=== PATIENT | male | born 1930 | race Caucasian/White ===

== ENCOUNTER 2016-07-19 17:39 | Emergency (ER) | payer MEDICARE, OTHER ==
[~2016-07-19] VITALS: Ht 172.7 cm; Wt 82.0 kg
[~2016-07-19 17:39] MED LIST: AMIO200T PO; POTA-243 PO
[2016-07-19 17:51] VITALS: BP 115/75; PULSE 124; RESP 16; TEMP 98.2; O2SAT 96
[2016-07-19] MEDS ORDERED: BUSP5TAB PO (20:34)
[2016-07-19] MEDS ORDERED: VENL75TA PO (20:34)
[2016-07-19] MEDS ORDERED: FURO1TAB60 PO (20:34)
[2016-07-19] MEDS ORDERED: DILT-64 PO (20:34)
[2016-07-19] MEDS ORDERED: BETH25TA2 PO (20:34)
[2016-07-19] MEDS ORDERED: METO50TA PO (20:34)
[2016-07-19] MEDS ORDERED: UMEC1INH INH (20:34)
[2016-07-19] MEDS ORDERED: XARE15TA PO (20:34)
[2016-07-19] MEDS ORDERED: SIMV10TA PO (20:34)
[2016-07-19] MEDS ORDERED: OMEP20TA PO (20:34)
[2016-07-19] MEDS ORDERED: TERA10CA3 PO (20:34)
--- NOTE | 2016-07-19 20:50 | PD ---
HPI Chief Complaint: Bite or Sting Time Seen by Provider: 20:21 Travel History International Travel<30 days: No Contact w/Intl Traveler<30days: No Traveled to known affect area: No History of Present Illness HPI The patient is a right-hand dominant 85-year-old male that suffered a dog bite 3 days ago to the base of the right middle finger. The patient cleaned it and soaked it and put Neosporin on it but it got infected. He states his last tetanus shot was 4 years ago. The states he cannot take sulfa, penicillin because of true allergies and he has severe side effects with tetracycline and Cleocin. He can take erythromycin. He has a history of atrial fibrillation and is on Xarelto. PFSH Past Medical History Hx Anticoagulant Therapy: Yes Arthritis: Yes Autoimmune Disease: No Anxiety: Yes Depression: Yes Heart Rhythm Problems: Yes (ABLATION) Cancer: Yes (basal cell carcinoma) Cardiovascular Problems: Yes (cad, aflutter) COPD: Yes Diabetes: No Diminished Hearing: Yes (bilat. hearing aides ) Endocrine: No GERD: Yes Genitourinary: Yes (DIFFICULTY EMPTING BLADDER) Hypertension: Yes Immune Disorder: No Implanted Vascular Access Dvce: No Musculoskeletal: Yes Neurologic: No Respiratory: Yes (copd, pneumonia) Thyroid Disease: No Tetanus Vaccination: < 5 Years Influenza Vaccination: Yes Past Surgical History Cardiac Surgery: Yes (ABLATION X2) Pacemaker: No Other Surgery: Yes (carotid artery sx ) Social History Alcohol Use: No Tobacco Use: No Substance Use: No Allergies-Medications (Allergen,Severity, Reaction): Coded Allergies: Sulfa (Unverified Allergy, Severe, UNKNOWN, 07/19/16) Penicillin (Verified Allergy, Intermediate, severe diarrhea, 07/19/16) Reported Meds & Prescriptions Reported Meds & Active Scripts Active Reported Buspirone (Buspirone HCl) 5 Mg Tab 2.5 Mg PO BID Incruse Ellipta Inh (Umeclidinium [place] Inh) 0.0625 Mg/Act Inh 62.5 Mcg INH DAILY Lasix (Furosemide) 40 Mg Tab 40 Mg PO DAILY Effexor (Venlafaxine HCl) 75 Mg Tab 150 Mg PO DAILY Omeprazole 20 Mg Tab 20 Mg PO DAILY Simvastatin 10 Mg Tab 10 Mg PO DAILY Xarelto (Rivaroxaban) 15 Mg Tab 15 Mg PO DAILY Terazosin (Terazosin HCl) 10 Mg Cap 10 Mg PO HS Bethanechol 25 Mg Tab 25 Mg PO BID Metoprolol Tartrate 50 Mg Tab 50 Mg PO BID Diltiazem CD 24 HR 240 Mg Caper 240 Mg PO DAILY Klor-Con 10 (Potassium Chloride) 10 Meq Tab 10 Meq PO DAILY Review of Systems Except as stated in HPI: all other systems reviewed are Neg Physical Exam Narrative GENERAL: Well-nourished, well-developed patient in slight apparent distress with his right finger discomfort. His vital signs are normal except for heart rate of 124. SKIN: Warm and dry. HEAD: Normocephalic. EYES: No scleral icterus. No injection or drainage. NECK: Supple, trachea midline. No JVD or lymphadenopathy. CARDIOVASCULAR: Atrial fibrillation rhythm without murmurs, gallops, or rubs. RESPIRATORY: Breath sounds equal bilaterally. No accessory muscle use. GASTROINTESTINAL: Abdomen soft, non-tender, nondistended. MUSCULOSKELETAL: No cyanosis, or edema. There is an infected dog bite at the base of the right middle finger with surrounding cellulitic area approximately 4 cm in diameter. A culture will be taken of the tissues. No obvious drainage is present. The patient can flex and extend his finger almost to full range of motion without pain. There is no evidence of tendon sheath infection. BACK: Nontender without obvious deformity. No CVA tenderness. Data Data Last Documented VS Vital Signs Date Time Temp Pulse Resp B/P Pulse Ox O2 Delivery O2 Flow Rate FiO2 07/19/16 17:51 98.2 124 16 115/75 96 Orders Wound Culture And Gram Stain (07/19/16 20:50) MDM Medical Decision Making Medical Screen Exam Complete: Yes Emergency Medical Condition: Yes Medical Record Reviewed: Yes Differential Diagnosis Cellulitis finger, infected dog bite, abscess formation, tendon sheath infection Narrative Course The patient has an infected dog bite with cellulitis. There is no evidence for abscess or tendon sheath infection. Unfortunately, the patient is allergic to the first line antibiotics for a dog bite and he will be given erythromycin and Bactroban ointment. Procedures Procedure Narrative The wound was debrided, there was skin and some subcutaneous tissues that needed debridement. Diagnosis Primary Impression: Infected dog bite of finger Additional Impression: Cellulitis of middle finger Additional Instructions: As we discussed, you will need to follow-up with a hand surgeon. Call Friday to set up an appointment. If worse, return to the emergency department for reevaluation and possible admission. Elevate your finger above your heart and soak it 3 times a day. Apply a very small amount of the antibiotic ointment on 3 times a day and take the antibiotic 3 times daily. Med/Other Pt SpecificInfo: Prescription(s) given Scripts Mupirocin Topical (Bactroban Topical)2 % Cream1 Applic TOPICAL TID #1 TUBE Ref 0 Prov:Cameron Howell MD 07/19/16 Erythromycin Ethylsuccinate (E.e.s. 400)400 Mg [id number] Mg PO Q8H 10 Days Ref 0 Prov:Cameron Howell MD 07/19/16 Disposition: 01 DISCHARGE HOME Condition: Stable Cameron Howell MD Jul 19, 2016 20:50
[2016-07-19] MEDS ORDERED: MUPI2%T TOPICAL (20:58)
[2016-07-19] MEDS ORDERED: ERYT PO (20:58)
[2016-07-19 21:00] VITALS: BP 112/69; PULSE 99; RESP 18; TEMP 97.7; O2SAT 98
[2016-07-19] MEDS ORDERED: MUPIROCIN 2% OINT 22 GM TUBE TOPICAL ONE (21:15)
[2016-07-19] MEDS ORDERED: ERYTHROMYCIN ETHYLSUCCINATE 400 MG TAB PO ONE (21:15)
== END 2016-07-19 21:40 | disposition home or self-care (01) ==
LOC: PHED 17:39
DX: S61.252A Open bite of right middle finger without damage to nail, initial encounter (principal); L03.113 Cellulitis of right upper limb; B96.89 Other specified bacterial agents as the cause of diseases classified elsewhere; W54.0XXA Bitten by dog, initial encounter
CPT/HCPCS: 86403; 87070; 87185; 87205; 99283

== ENCOUNTER 2016-08-23 13:11 | Emergency (ER) | payer MEDICARE ==
[~2016-08-23] VITALS: Ht 172.7 cm; Wt 82.3 kg
[~2016-08-23 13:11] MED LIST changes: -AMIO200T PO; +BETH25TA2 PO; +BUSP5TAB PO; +DILT-64 PO; +ERYT PO; +FURO1TAB60 PO; +METO50TA PO; +MUPI2%T TOPICAL; +OMEP20TA PO; +SIMV10TA PO; +TERA10CA3 PO; +UMEC1INH INH; +VENL75TA PO; +XARE15TA PO
[2016-08-23 13:16] VITALS: BP 110/73; PULSE 115; RESP 20; TEMP 97; O2SAT 99
--- NOTE | 2016-08-23 13:43 | PD ---
HPI Chief Complaint: Abnormal Results Time Seen by Provider: 13:26 Travel History International Travel<30 days: No Contact w/Intl Traveler<30days: No Traveled to known affect area: No History of Present Illness HPI This patient feels fine. He has no acute symptoms. He does not want to be here. He went to a routine scheduled [place] At that visit they took his vital signs and noted that his pulse was 112. They told him to go to his product sales engineer. He went to the office of Dr. Galindo and office staff told him to go to the emergency room. He didn't want to go to the emergency room so he went to the office of Dr. Merchant. Their office staff told him to go to the emergency room and he finally came here to [place] emergency room. At this time he feels fine and just wants to go home. He has no chest pain or presyncopal symptoms. Severity is negligible. PFSH Past Medical History Hx Anticoagulant Therapy: Yes Arthritis: Yes Autoimmune Disease: No Anxiety: Yes Depression: Yes Heart Rhythm Problems: Yes (ABLATION) Cancer: Yes (basal cell carcinoma) Cardiovascular Problems: Yes COPD: Yes Diabetes: No Diminished Hearing: Yes (bilat. hearing aides ) Endocrine: No GERD: Yes Genitourinary: Yes (DIFFICULTY EMPTING BLADDER) Hypertension: Yes Immune Disorder: No Implanted Vascular Access Dvce: No Musculoskeletal: Yes Neurologic: No Respiratory: Yes (copd, pneumonia) Thyroid Disease: No ?: Not Past Surgical History Cardiac Surgery: Yes (ABLATION X2) Pacemaker: No Other Surgery: Yes (carotid artery sx ) Social History Alcohol Use: No Tobacco Use: No Substance Use: No Allergies-Medications (Allergen,Severity, Reaction): Coded Allergies: Sulfa (Unverified Allergy, Severe, UNKNOWN, 08/23/16) Penicillin (Verified Allergy, Intermediate, severe diarrhea, 08/23/16) Reported Meds & Prescriptions Reported Meds & Active Scripts Active Bactroban Topical (Mupirocin) 2 % Cream 1 Applic TOPICAL TID E.e.s. 400 (Erythromycin Ethylsuccinate) 400 Mg Tab 400 Mg PO Q8H 10 Days Reported Buspirone (Buspirone HCl) 5 Mg Tab 2.5 Mg PO BID Incruse Ellipta Inh (Umeclidinium [place] Inh) 0.0625 Mg/Act Inh 62.5 Mcg INH DAILY Lasix (Furosemide) 40 Mg Tab 40 Mg PO DAILY Effexor (Venlafaxine HCl) 75 Mg Tab 150 Mg PO DAILY Omeprazole 20 Mg Tab 20 Mg PO DAILY Simvastatin 10 Mg Tab 10 Mg PO DAILY Xarelto (Rivaroxaban) 15 Mg Tab 15 Mg PO DAILY Terazosin (Terazosin HCl) 10 Mg Cap 10 Mg PO HS Bethanechol 25 Mg Tab 25 Mg PO BID Metoprolol Tartrate 50 Mg Tab 50 Mg PO BID Diltiazem CD 24 HR 240 Mg Caper 240 Mg PO DAILY Klor-Con 10 (Potassium Chloride) 10 Meq Tab 10 Meq PO DAILY Review of Systems General / Constitutional: No: Fever HENT: No: Headaches Cardiovascular: Positive: Irregular Rhythm Respiratory: No: Shortness of Breath Physical Exam Narrative CARDIOVASCULAR: Irregularly irregular rhythm without murmur. Extremities showed no edema or varicosities. RESPIRATORY: Respiratory effort unlabored, no retractions or use of accessory muscles. Breath sounds are clear and symmetric. GASTROINTESTINAL: Abdomen soft, non-tender, nondistended. Positive bowel sounds. No hepato-splenomegaly, or palpable masses. No guarding. Data Data Last Documented VS Vital Signs Date Time Temp Pulse Resp B/P Pulse Ox O2 Delivery O2 Flow Rate FiO2 08/23/16 13:16 97.0 115 20 110/73 99 MDM Medical Decision Making Medical Screen Exam Complete: Yes Emergency Medical Condition: Yes Medical Record Reviewed: Yes Differential Diagnosis A. fib with RVR, SVT, PVCs Narrative Course I have reviewed the patient's electronic medical record. Patient's A. fib is chronic. He was here last month for dog bite Patient is asymptomatic His heart rate is variable between 85 and 100 for the most part, occasionally and briefly drifts higher but then comes back to normal range I've asked him to check his heart rate and blood pressure periodically and record for his physician. Follow-up with his primary care or product sales engineer No indication for emergent studies Diagnosis Primary Impression: Atrial fibrillation with RVR Additional Instructions: The patient was advised to follow up with their physician and return if they worsen. Med/Other Pt SpecificInfo: Other Disposition: 01 DISCHARGE HOME Condition: Stable Car Frey MD Aug 23, 2016 13:43
== END 2016-08-23 14:01 | disposition home or self-care (01) ==
LOC: PHED 13:11
DX: I48.91 Unspecified atrial fibrillation (principal); F41.8 Other specified anxiety disorders; I10 Essential (primary) hypertension; Z79.01 Long term (current) use of anticoagulants; J44.9 Chronic obstructive pulmonary disease, unspecified
CPT/HCPCS: 99283

== ENCOUNTER 2016-09-10 10:54 | Observation (INO) | payer MEDICARE ==
[2016-09-10] VITALS (11 sets, daily range): BP systolic 77–151; BP diastolic 55–86; PULSE 132–148; RESP 8–23; TEMP 98–98.3; O2SAT 94–100
[~2016-09-10 10:54] MED LIST changes: -BETH25TA2 PO; -ERYT PO; -MUPI2%T TOPICAL
[2016-09-10] MEDS ORDERED: SERT-132 PO (11:12)
[2016-09-10] MEDS ORDERED: BETH25TA2 PO (11:12)
[2016-09-10] MEDS ORDERED: AMIO200T PO (11:12)
[2016-09-10] MEDS ORDERED: SODIUM CHLORID 0.9% 500 ML INJ 500 ML IV ONE (11:30)
[2016-09-10] MEDS ORDERED: OCUVTAB PO (11:30)
[2016-09-10] MEDS ORDERED: POTA-243 PO (11:30)
[2016-09-10] MEDS ORDERED: FURO40TA PO (11:30)
[2016-09-10] MEDS ORDERED: [UNRECOGNIZED DRUG - REMARK] (11:30)
[2016-09-10] MEDS ORDERED: XARE15TA PO (11:30)
[2016-09-10] MEDS ORDERED: TERA10CA3 PO (11:30)
[2016-09-10] MEDS ORDERED: DILTIAZEM HCL 25 MG/5 ML VIAL IV PUSH ONE (11:30)
[2016-09-10] MEDS ORDERED: BUSP5TAB PO (11:30)
[2016-09-10] MEDS ORDERED: SODIUM CHLORIDE 0.9% FLUSH 10 ML FLUSH IVF PRN (11:30)
[2016-09-10] MEDS ORDERED: SIMV10TA PO (11:30)
[2016-09-10 11:41] LABS: AUTOMATED NEUTROPHIL # 3.9 TH/MM3 (1.8-7.7); BASOPHIL % 0.5 % (0.0-2.0); EOSINOPHIL # 0.1 TH/MM3 (0-0.4); EOSINOPHIL % 1.6 % (0.0-4.0); HEMO FLAGS DIFF FINAL; LYMPH % 21.4 % (9.0-44.0); LYMPHOCYTE # 1.3 TH/MM3 (1.0-4.8); MEAN CELL VOLUME 97.8 FL (80.0-100.0); MEAN CORPUSCULAR HEMOGLOBIN 34.2 PG (27.0-34.0); MONO % 10.6 % (0.0-8.0); NEUT % 65.9 % (16.0-70.0); PLATELET COUNT 182 TH/MM3 (150-450); RED BLOOD COUNT 3.88 MIL/MM3 (4.50-5.90); RED CELL DISTRIBUTION WIDTH 14.5 % (11.6-17.2); WHITE BLOOD COUNT 5.9 TH/MM3 (4.0-11.0)
[2016-09-10 11:47] LABS: CHLORIDE 107 MEQ/L (98-107); POTASSIUM 4.1 MEQ/L (3.5-5.1); SODIUM (NA) 142 MEQ/L (136-145)
--- NOTE | 2016-09-10 11:47 | PD ---
HPI Chief Complaint: Cardiac Complaint Time Seen by Provider: 11:12 Travel History International Travel<30 days: No Contact w/Intl Traveler<30days: No Traveled to known affect area: No History of Present Illness HPI Patient is an 86-year-old male with history of A. fib, hypertension, diabetes, COPD, BPH, emergency room with complaints of rapid heart rate. Patient reports that he began to have a rapid heart rate starting Friday morning, reports that he was sitting down relaxing when his symptoms began. Reports that he has been having shortness of breath with symptoms, denies chest pain. Patient reports that he has had history of A. fib with ablation 2 in the past, reports that performed his last ablation 03/26/2016 - reports that both ablations were a failure. Patient reports that he is scheduled to see Dr. Galindo in the office in 2 weeks for a cardioversion for his afib. Patient is taking his diltiazem CD 240 mg daily as well as his Xarelto 15mg daily - reports that he has been compliant with his medications. PFSH Past Medical History Hx Anticoagulant Therapy: Yes Arthritis: Yes Autoimmune Disease: No Anxiety: Yes Depression: Yes Heart Rhythm Problems: Yes (AFIB) Cancer: Yes (basal cell carcinoma) Cardiovascular Problems: Yes COPD: Yes Diabetes: No Diminished Hearing: Yes (bilat. hearing aides ) Endocrine: No GERD: Yes Genitourinary: Yes (DIFFICULTY EMPTING BLADDER) Hypertension: Yes Immune Disorder: No Implanted Vascular Access Dvce: No Musculoskeletal: Yes Neurologic: No Respiratory: Yes (copd, pneumonia) Thyroid Disease: No Past Surgical History Cardiac Surgery: Yes (ABLATION X2) Pacemaker: No Other Surgery: Yes (carotid artery sx ) Social History Alcohol Use: No Tobacco Use: No Substance Use: No Allergies-Medications (Allergen,Severity, Reaction): Coded Allergies: Sulfa (Unverified Allergy, Severe, UNKNOWN, 08/23/16) Penicillin (Verified Allergy, Intermediate, severe diarrhea, 08/23/16) Doxycycline (Verified Allergy, Unknown, 09/10/16) Reported Meds & Prescriptions Reported Meds & Active Scripts Active Reported Ocuvite (Multiple Vitamins W/ Minerals) 1 Tab 1 Tab PO DAILY [Inhilation Powder] Klor-Con 10 (Potassium Chloride) 10 Meq Tab 10 Meq PO DAILY Buspirone (Buspirone HCl) 5 Mg Tab 2.5 Mg PO BID Furosemide 40 Mg Tab 40 Mg PO DAILY Simvastatin 10 Mg Tab 10 Mg PO HS Xarelto (Rivaroxaban) 15 Mg Tab 15 Mg PO HS Terazosin (Terazosin HCl) 10 Mg Cap 10 Mg PO HS Sertraline (Sertraline HCl) 50 Mg Tab 50 Mg PO HS Bethanechol 25 Mg Tab 25 Mg PO BID Amiodarone (Amiodarone HCl) 200 Mg Tab 200 Mg PO DAILY Effexor (Venlafaxine HCl) 75 Mg Tab 37 Mg PO DAILY Omeprazole 20 Mg Tab 20 Mg PO DAILY Diltiazem CD 24 HR 240 Mg Caper 120 Mg PO DAILY Review of Systems General / Constitutional: No: Fever Eyes: No: Visual changes HENT: No: Headaches Cardiovascular: Positive: Irregular Rhythm, Tachycardia, No: Chest Pain or Discomfort Respiratory: Positive: Shortness of Breath Gastrointestinal: No: Abdominal Pain Genitourinary: No: Dysuria Musculoskeletal: No: Pain Skin: No Rash Neurologic: No: Weakness Psychiatric: No: Depression Endocrine: No: Polydipsia Hematologic/Lymphatic: No: Easy Bruising Physical Exam Narrative GENERAL: Mild distress SKIN: Focused skin assessment warm/dry. HEAD: Atraumatic. Normocephalic. EYES: Pupils equal and round. ENT: No nasal bleeding or discharge. Mucous membranes pink and moist. NECK: Trachea midline. No JVD. CARDIOVASCULAR: Irregular rate and rhythm. No murmur appreciated. RESPIRATORY: No accessory muscle use. Clear to auscultation. Breath sounds equal bilaterally. GASTROINTESTINAL: Abdomen soft, non-tender, nondistended. Hepatic and splenic margins not palpable. MUSCULOSKELETAL: No obvious deformities. No clubbing. No cyanosis. No edema. NEUROLOGICAL: Awake and alert. Normal speech. PSYCHIATRIC: Appropriate mood and affect; insight and judgment normal. Data Data Last Documented VS Vital Signs Date Time Temp Pulse Resp B/P Pulse Ox O2 Delivery O2 Flow Rate FiO2 09/10/16 13:36 141 20 121/81 98 09/10/16 11:06 98.0 Orders Ckmb (Isoenzyme) Profile (09/10/16 11:18) Complete Blood Count With Diff (09/10/16 11:18) Comprehensive Metabolic Panel (09/10/16 11:18) Prothrombin Time / Inr (Pt) (09/10/16 11:18) Act Partial Throm Time (Ptt) (09/10/16 11:18) Troponin I (09/10/16 11:18) Chest, Single Ap (09/10/16 11:18) Ecg Monitoring (09/10/16 11:18) Iv Access Insert/Monitor (09/10/16 11:18) Oximetry (09/10/16 11:18) Sodium Chloride 0.9% Flush (Ns Flush) (09/10/16 11:30) Sodium Chlorid 0.9% 500 Ml Inj (Ns 500 M (09/10/16 11:30) Diltiazem Inj (Cardizem Inj) (09/10/16 11:30) Diltiazem Inj (Cardizem Inj) (09/10/16 12:00) Electrocardiogram (09/10/16 ) Add Patient To Providers List (09/10/16 ) ^ Other Nursing Orders (09/10/16 13:36) Thyroid Stimulating Hormone (09/10/16 13:36) Place In Observation (09/10/16 ) Vital Signs (Adult) Q4H (09/10/16 13:36) Activity Oob With Assistance (09/10/16 13:36) Food Production Manager / Telemetry .CONTINUOUS (09/10/16 13:36) Intake + Output RANDA.QSHIFT (09/10/16 13:36) Diet Npo (09/10/16 Lunch) Sodium Chlor 0.9% 1000 Ml Inj (Ns 1000 M (09/10/16 13:36) Sodium Chloride 0.9% Flush (Ns Flush) (09/10/16 13:45) Sodium Chloride 0.9% Flush (Ns Flush) (09/10/16 21:00) Acetaminophen (Tylenol) (09/10/16 13:45) Ondansetron Inj (Zofran Inj) (09/10/16 13:45) Basic Metabolic Panel (Bmp) (09/11/16 06:00) Complete Blood Count With Diff (09/11/16 06:00) Acetaminophen (Tylenol) (09/10/16 13:45) Acetamin-Hydrocod 325-5 Mg ([place] 5-325 (09/10/16 13:45) Acetamin-Hydrocod 325-7.5 Mg ([place] 7.5 (09/10/16 13:45) Morphine Inj (Morphine Inj) (09/10/16 13:45) Naloxone Inj (Narcan Inj) (09/10/16 13:45) Consult Cardiology (09/10/16 ) Admit Order (Ed Use Only) (09/10/16 13:39) Labs Laboratory Tests Test 09/10/16 11:20 White Blood Count 5.9 TH/MM3 Red Blood Count 3.88 MIL/MM3 Hemoglobin 13.3 GM/DL Hematocrit 38.0 % Mean Corpuscular Volume 97.8 FL Mean Corpuscular Hemoglobin 34.2 PG Mean Corpuscular Hemoglobin 35.0 % Concent Red Cell Distribution Width 14.5 % Platelet Count 182 TH/MM3 Mean Platelet Volume 8.5 FL Neutrophils (%) (Auto) 65.9 % Lymphocytes (%) (Auto) 21.4 % Monocytes (%) (Auto) 10.6 % Eosinophils (%) (Auto) 1.6 % Basophils (%) (Auto) 0.5 % Neutrophils # (Auto) 3.9 TH/MM3 Lymphocytes # (Auto) 1.3 TH/MM3 Monocytes # (Auto) 0.6 TH/MM3 Eosinophils # (Auto) 0.1 TH/MM3 Basophils # (Auto) 0.0 TH/MM3 CBC Comment DIFF FINAL Differential Comment Prothrombin Time 14.7 SEC Prothromb Time International 1.3 RATIO Ratio Activated Partial 35.0 SEC Thromboplast Time Sodium Level 142 MEQ/L Potassium Level 4.1 MEQ/L Chloride Level 107 MEQ/L Carbon Dioxide Level 26.0 MEQ/L Anion Gap 9 MEQ/L Blood Urea Nitrogen 22 MG/DL Creatinine 1.90 MG/DL Estimat Glomerular Filtration 34 ML/MIN Rate Random Glucose 91 MG/DL Calcium Level 9.2 MG/DL Total Bilirubin 0.6 MG/DL Aspartate Amino Transf 26 U/L (AST/SGOT) Alanine Aminotransferase 23 U/L (ALT/SGPT) Alkaline Phosphatase 136 U/L Total Creatine Kinase 65 U/L Troponin I LESS THAN 0.02 NG/ML Total Protein 7.2 GM/DL Albumin 3.7 GM/DL Thyroid Stimulating Hormone 1.090 uIU/ML 3rd Gen [facility] Medical Decision Making Medical Screen Exam Complete: Yes Emergency Medical Condition: Yes Interpretation(s) EKG at 1100: aflutter at 146bpm, qt/qtc: 304/452 Vital Signs Date Time Temp Pulse Resp B/P Pulse Ox O2 Delivery O2 Flow Rate FiO2 09/10/16 11:20 96 09/10/16 11:06 98.0 147 20 138/78 100 Differential Diagnosis A flutter, electrolyte abnormality, A. fib Narrative Course Patient is a 86-year-old male who presents to emergency room for evaluation of A. flutter. Patient is currently being treated by Dr. Galindo, he has had 2 failed A. fib ablations in the past. Reports that he has been having a rapid heart rate for the past 2 days, reports that symptoms are similar to his A. fib he has had in the past. Patient reports that he is scheduled to see his teacher of the sight impaired in 2 weeks for cardioversion. Patient currently in a flutter rhythm at 146 bpm, he does take diltiazem CD 24 hours 240mg daily and has been compliant with this medication. Patient was placed on a nuclear monitoring technician upon arrival to emergency room. Labs as well as x-ray of the chest ordered. Patient ordered 0.25 mg/kg dose of Cardizem, - patient did not respond to this dose of Cardizem. Patient ordered a 0.35 mg/kg dose of Cardizem. patient with aflutter in the 140's, reviewed case with Dr. Galindo who will see patient in hospital today for possible cardioversion Case reviewed with Dr. Bustillo who accepts pt to service Diagnosis Primary Impression: Atrial fibrillation and flutter Admitting Information Admitting Physician Requests: Observation Mayte Burr DO Sep 10, 2016 11:47
[2016-09-10 11:51] LABS: ANION GAP 9 MEQ/L (5-15); BLOOD UREA NITROGEN 22 MG/DL (7-18)
[2016-09-10 11:52] LABS: INTERNATIONAL NORMALIZED RATIO 1.3 RATIO; PROTHROMBIN TIME - PATIENT 14.7 SEC (9.8-11.6)
[2016-09-10 11:54] LABS: ALT (GPT) 23 U/L (12-78); AST (GOT) 26 U/L (15-37); GLOMERULAR FILTRATION RATE 34 ML/MIN (>89)
[2016-09-10 11:56] LABS: TOTAL BILIRUBIN ADULT 0.6 MG/DL (0.2-1.0)
[2016-09-10 11:57] LABS: ALKALINE PHOSPHATASE 136 U/L (45-117)
[2016-09-10] MEDS ORDERED: DILTIAZEM HCL 25 MG/5 ML VIAL IV PUSH PRN (12:00)
[2016-09-10] MEDS ORDERED: DILTIAZEM HCL 25 MG/5 ML VIAL IV ONE (12:00)
[2016-09-10 12:01] LABS: CREATINE KINASE 65 U/L (39-308)
--- NOTE | 2016-09-10 12:38 | RADHPO ---
EXAM DATE/TIME: 09/10/2016 11:22 [facility] COMPARISON: CHEST SINGLE AP, June 16, 2015, 4:19. INDICATIONS : Short of breath. Rapid heart rate. MEDICAL HISTORY : Hypertension. Chronic obstructive pulmonary disease. Osteoarthritis. GERD. WI. A-fib. SURGICAL HISTORY : Cardiac ablation. Carotid artery surgery. ENCOUNTER: Initial ACUITY: 2 days PAIN SCORE: 0/10 LOCATION: chest FINDINGS: A single view of the chest demonstrates the lungs to be symmetrically aerated without evidence of mas s, infiltrate or effusion. The cardiomediastinal contours are unremarkable. Osseous structures are intact. CONCLUSION: The lungs are clear. Ramon Molina MD on September 10, 2016 at 12:36 Board Certified Radiologist. This report was verified electronically.
[2016-09-10] MEDS ORDERED: ACETAMINOPHEN/HYDROcodone 325 MG/7.5 MG TAB PO PRN (13:45)
[2016-09-10] MEDS ORDERED: SODIUM CHLORIDE 0.9% FLUSH 10 ML FLUSH IV FLUSH PRN (13:45)
[2016-09-10] MEDS ORDERED: DOCUSATE SODIUM 100 MG CAP PO PRN (13:45)
[2016-09-10] MEDS ORDERED: MORPHINE SULFATE 4 MG/ML INJ IV PRN (13:45)
[2016-09-10] MEDS ORDERED: ONDANSETRON HCL 4 MG/2 ML VIAL IVP PRN (13:45)
[2016-09-10] MEDS ORDERED: NALOXONE HCL 0.4 MG/ML AMP IV PRN (13:45)
[2016-09-10] MEDS ORDERED: CALCIUM CARBONATE 500 MG CHEWABLE TAB CHEW PRN (13:45)
[2016-09-10] MEDS ORDERED: ACETAMINOPHEN 325 MG TAB PO PRN ×2 (13:45)
[2016-09-10] MEDS ORDERED: ACETAMINOPHEN/HYDROcodone 325 MG/5 MG TAB PO PRN (13:45)
--- NOTE | 2016-09-10 15:42 | HHI.HP ---
[facility] Service [facility] Primary Care Physician Carloz Hall M.D. Admission Diagnosis Aflutter Diagnoses: Chief Complaint: Palpitations Travel History International Travel<30 Days: No Contact w/Intl Traveler <30 Da: No Traveled to Known Affected Are: No History of Present Illness 86-year-old male with a past medical history of A. fib, HTN, DM, BPH, HLD, GERD , depression, COPD who presented with palpitations. The patient states that since Friday he has been having sensation of racing heart rate. He is also having associated shortness of breath, that is worse with exertion. He denies any chest pain or leg swelling. He states that he did forget to take his medications Friday morning, but otherwise is been compliant. Last he saw his cover remover, Dr. Galindo, who adjusted his medications in anticipation of doing cardioversion in 2 weeks. He was previously on metoprolol , which was stopped and he was started on diltiazem and amiodarone. The patient was found to be in atrial flutter with heart rate up to 150 today, patient's cover remover was contacted in the ED, reportedly evaluated the patient today. The patient denies any fever, chills, or dysuria. Review of Systems Except as stated in HPI: all other systems reviewed are Neg Past Family Social History Past Medical History Atrial fibrillation BPH Depression Hyperlipidemia GERD COPD Prediabetes/diabetes Past Surgical History Ablation 3 Basal cell carcinoma removal Carotid Endarterectomy Reported Medications Ocuvite (Multiple Vitamins W/ Minerals) 1 Tab 1 Tab PO DAILY [Inhilation Powder] Klor-Con 10 (Potassium Chloride) 10 Meq Tab 10 Meq PO DAILY Buspirone (Buspirone HCl) 5 Mg Tab 2.5 Mg PO BID Furosemide 40 Mg Tab 40 Mg PO DAILY Simvastatin 10 Mg Tab 10 Mg PO HS Xarelto (Rivaroxaban) 15 Mg Tab 15 Mg PO HS Terazosin (Terazosin HCl) 10 Mg Cap 10 Mg PO HS Sertraline (Sertraline HCl) 50 Mg Tab 50 Mg PO HS Bethanechol 25 Mg Tab 25 Mg PO BID Amiodarone (Amiodarone HCl) 200 Mg Tab 200 Mg PO DAILY Effexor (Venlafaxine HCl) 75 Mg Tab 37 Mg PO DAILY Omeprazole 20 Mg Tab 20 Mg PO DAILY Diltiazem CD 24 HR 240 Mg Caper 120 Mg PO DAILY Allergies: Coded Allergies: Sulfa (Unverified Allergy, Severe, UNKNOWN, 08/23/16) Penicillin (Verified Allergy, Intermediate, severe diarrhea, 08/23/16) Doxycycline (Verified Allergy, Unknown, 09/10/16) Active Ordered Medications Current Medications Medications (Trade) Dose Ordered Sig/Margaret Route Start Time Stop Time Status Last Admin (NS 1000 ml Inj) 1,000 ml @ 80 mls/hr [id number] IV 09/10/16 13:36 (NS Flush) 2 ml UNSCH PRN IV FLUSH 09/10/16 13:45 (NS Flush) 2 ml BID IV FLUSH 09/10/16 21:00 (Tylenol) 650 mg Q4H PRN PO 09/10/16 13:45 (Zofran Inj) 4 mg Q6H PRN IVP 09/10/16 13:45 (Tylenol) 650 mg Q6H PRN PO 09/10/16 13:45 ([place] 5-325 Mg) 1 tab Q4H PRN PO 09/10/16 13:45 ([place] 7.5-325 Mg) 1 tab Q4H PRN PO 09/10/16 13:45 (Morphine Inj) 1 mg Q3H PRN IV 09/10/16 13:45 (Narcan Inj) 0.4 mg UNSCH PRN IV 09/10/16 13:45 (Colace) 100 mg BID PRN PO 09/10/16 13:45 (Tums Chew) 1,000 mg TID PRN CHEW 09/10/16 13:45 (Urecholine) 25 mg BID PO 09/10/16 21:00 (Buspar) 2.5 mg BID PO 09/10/16 21:00 (Cardizem Cd) 120 mg DAILY PO 09/11/16 09:00 (Lasix) 40 mg DAILY PO 09/11/16 09:00 (Xarelto) 15 mg HS PO 09/10/16 21:00 (Zoloft) 50 mg HS PO 09/10/16 21:00 (Hytrin) 10 mg HS PO 09/10/16 21:00 (Protonix) 20 mg DAILY PO 09/11/16 09:00 (Pravachol) 20 mg HS PO 09/10/16 21:00 (Effexor Xr) 37.5 mg DAILY PO 09/11/16 09:00 (Cordarone) 200 mg DAILY PO 09/11/16 09:00 UNV (KCl) 10 meq DAILY PO 09/11/16 09:00 UNV Family History Father had heart disease Social History No alcohol or tobacco use Lives at home with his Physical Exam Vital Signs Vital Signs Date Time Temp Pulse Resp B/P Pulse Ox O2 Delivery O2 Flow Rate FiO2 09/10/16 13:36 141 20 121/81 98 09/10/16 12:47 141 20 125/81 98 09/10/16 12:01 141 20 122/71 98 09/10/16 11:20 96 09/10/16 11:06 98.0 147 20 138/78 100 Physical Exam GENERAL: Well-developed well-nourished. In no acute distress. SKIN: Warm and dry. No lesions noted. HEENT: Normocephalic. Pupils equal and round. Mucous membranes pink and moist. CARDIOVASCULAR: Tachycardic rate and rhythm. No murmur appreciated. RESPIRATORY: No accessory muscle use. Clear to auscultation. Breath sounds equal bilaterally. GASTROINTESTINAL: Abdomen soft, non-tender, nondistended. Bowel sounds x4. MUSCULOSKELETAL: No obvious deformities. No clubbing or cyanosis. Trace edema. NEUROLOGICAL: Awake and alert. No focal neurological deficits. Moves upper and lower extremities spontaneously. Normal speech. PSYCHIATRIC: Appropriate mood and affect; insight and judgment normal. Laboratory Laboratory Tests Test 09/10/16 11:20 White Blood Count 5.9 Red Blood Count 3.88 Hemoglobin 13.3 Hematocrit 38.0 Mean Corpuscular Volume 97.8 Mean Corpuscular Hemoglobin 34.2 Mean Corpuscular Hemoglobin 35.0 Concent Red Cell Distribution Width 14.5 Platelet Count 182 Mean Platelet Volume 8.5 Neutrophils (%) (Auto) 65.9 Lymphocytes (%) (Auto) 21.4 Monocytes (%) (Auto) 10.6 Eosinophils (%) (Auto) 1.6 Basophils (%) (Auto) 0.5 Neutrophils # (Auto) 3.9 Lymphocytes # (Auto) 1.3 Monocytes # (Auto) 0.6 Eosinophils # (Auto) 0.1 Basophils # (Auto) 0.0 CBC Comment DIFF FINAL Differential Comment Prothrombin Time 14.7 Prothromb Time International 1.3 Ratio Activated Partial 35.0 Thromboplast Time Sodium Level 142 Potassium Level 4.1 Chloride Level 107 Carbon Dioxide Level 26.0 Anion Gap 9 Blood Urea Nitrogen 22 Creatinine 1.90 Estimat Glomerular Filtration 34 Rate Random Glucose 91 Calcium Level 9.2 Total Bilirubin 0.6 Aspartate Amino Transf 26 (AST/SGOT) Alanine Aminotransferase 23 (ALT/SGPT) Alkaline Phosphatase 136 Total Creatine Kinase 65 Troponin I LESS THAN 0.02 Total Protein 7.2 Albumin 3.7 Thyroid Stimulating Hormone 1.090 3rd Gen Result Diagram: 09/10/16 1120 09/10/16 1120 Imaging Last Impressions Chest X-Ray 09/10/16 1118 Signed Impressions: Service Date/Time: Saturday, September 10, 2016 11:22 - CONCLUSION: The lungs are clear. Ramon Molina MD Assessment and Plan Assessment and Plan 86-year-old male with a past medical history of A. fib, HTN, DM, BPH, HLD, GERD , depression, COPD who presented with palpitations Atrial flutter with RVR: EKG personally reviewed with rapid atrial flutter, rate 140s, no definite ST changes. TSH and magnesium within normal limits. Dr. Galindo with cardiology consulted, may perform cardioversion today, keep nothing by mouth for now. IVF while nothing by mouth. S/P IV Cardizem in the ED. Continue oral diltiazem, Xarelto(renally adjusted), amiodarone, potassium. Reported history of borderline DM: Random glucose 91. Monitor. CKD stage III: Creatinine 1.9, previously 1.86 on 04/09/16. Continue home Lasix. Chronic, stable. Monitor. Other chronic medical conditions include BPH, depression, HLD, GERD: Stable at this time and will continue home medications as indicated. DVT prophylaxis: On Xarelto. Written by Asif Ortgea, acting as scribe for Dr. Bustillo on 09/10/16 at 15:36. This note was transcribed by scribe []. I, Dr. Moncho Bustillo personally performed the history, physical exam, and medical decision making; and confirmed the accuracy of the information in the transcribed note. Authenticated by Dr. Moncho Bustillo on 09/10/16 at 21:50. Discussed Condition With Patient with and RN at bedside Asif Ortega Sep 10, 2016 15:42 Moncho Bustillo MD Sep 10, 2016 21:50
[2016-09-10] MEDS: SODIUM CHLOR 0.9% 1000 ML INJ 1,000 ML IV SCH (17:09)
[2016-09-10] MEDS: BETHANECHOL CHL 25 MG TAB PO SCH (20:52)
[2016-09-10] MEDS: busPIRone HCL 5 MG TAB PO SCH (20:52)
[2016-09-10] MEDS: SODIUM CHLORIDE 0.9% FLUSH 10 ML FLUSH IV FLUSH SCH (20:52)
[2016-09-10] MEDS ORDERED: PRAVASTATIN SOD 20 MG TAB PO SCH (21:00)
[2016-09-10] MEDS ORDERED: SERTRALINE HCL 50 MG TAB PO SCH (21:00)
[2016-09-10] MEDS ORDERED: TERAZOSIN HCL 5 MG CAP PO SCH (21:00)
[2016-09-10] MEDS ORDERED: RIVAROXABAN 15 MG TAB PO SCH (21:00)
--- NOTE | 2016-09-10 23:49 | EKG ---
Date Performed: 09/10/2016 Time Performed: 12:14:50 PTAGE: 86 years EKG: Atrial flutter with rapid ventricular response with 2:1 A-V block Left axis deviation Infer ior infarct - age undetermined Possible septal infarct - age undetermined Lateral T wave changes may be due to myocardial ischemia Abnormal ECG PREVIOUS TRACING : 09/10/2016 11.00 Compared to prior tracing no significant change DOCTOR: Salomon Marshall Interpretating Date/Time 09/10/2016 23:47:53
--- NOTE | 2016-09-10 23:59 | EKG ---
Date Performed: 09/10/2016 Time Performed: 11:00:34 PTAGE: 86 years EKG: Atrial flutter with rapid ventricular response with 2:1 A-V block Leftward axis Possible se ptal infarct - age undetermined Possible inferior infarct - age undetermined Lateral T wave changes m ay be due to myocardial ischemia Low QRS voltages in limb leads Abnormal ECG PREVIOUS TRACING : 04/10/2016 04.06 Compared to the previous tracing, rate has increased DOCTOR: Salomon Marshall Interpretating Date/Time 09/10/2016 23:58:12
[2016-09-11] VITALS (9 sets, daily range): BP systolic 101–133; BP diastolic 53–97; PULSE 101–146; RESP 13–18; TEMP 98–98.4; O2SAT 92–99
[2016-09-11] MEDS: SODIUM CHLOR 0.9% 1000 ML INJ 1,000 ML IV SCH ×2 (02:06→11:07)
[2016-09-11] MEDS ORDERED: INSULIN HUMAN REGULAR 1,000 UNITS/10 ML VIAL SQ PRN (05:30)
[2016-09-11] MEDS ORDERED: METOPROLOL TARTRATE 25 MG TAB PO PRN (05:30)
[2016-09-11] MEDS ORDERED: POVIDONE IODINE 5% (ANTISEPSIS KIT) 4 APPLICATIONS EACH NARE PRN (05:30)
[2016-09-11] MEDS ORDERED: SODIUM CHLORID 0.9% 500 ML IV PRN (05:30)
[2016-09-11] MEDS ORDERED: LACTATED RINGER'S 1000 ML IV PRN (05:30)
[2016-09-11] MEDS ORDERED: CHLORHEXIDINE GLUCONATE 2 % 1 PACK (2 CLOTHS) TOPICAL PRN (05:30)
[2016-09-11 06:39] LABS: AUTOMATED NEUTROPHIL # 3.1 TH/MM3 (1.8-7.7); BASOPHIL # 0.1 TH/MM3 (0-0.2); EOSINOPHIL # 0.1 TH/MM3 (0-0.4); EOSINOPHIL % 2.2 % (0.0-4.0); HEMATOCRIT 39.3 % (39.0-51.0); HEMO FLAGS DIFF FINAL; LYMPH % 23.7 % (9.0-44.0); LYMPHOCYTE # 1.2 TH/MM3 (1.0-4.8); MEAN CELL VOLUME 97.2 FL (80.0-100.0); MEAN CORPUSCULAR HEMOGLOBIN 32.9 PG (27.0-34.0); MEAN CORPUSCULAR HGB CONC 33.9 % (32.0-36.0); MONO % 13.3 % (0.0-8.0); NEUT % 59.8 % (16.0-70.0); PLATELET COUNT 158 TH/MM3 (150-450); RED BLOOD COUNT 4.04 MIL/MM3 (4.50-5.90); RED CELL DISTRIBUTION WIDTH 14.5 % (11.6-17.2); WHITE BLOOD COUNT 5.1 TH/MM3 (4.0-11.0)
[2016-09-11] MEDS ORDERED: PANTOPRAZOLE SOD 20 MG DELAYED RELEASE TAB PO SCH (09:00)
[2016-09-11] MEDS ORDERED: FUROSEMIDE 40 MG TAB PO SCH (09:00)
[2016-09-11] MEDS ORDERED: AMIODARONE 200 MG TAB PO SCH (09:00)
[2016-09-11] MEDS ORDERED: POTASSIUM CHLORIDE 10 MEQ CONTROLLED RELEASE TAB PO SCH (09:00)
[2016-09-11] MEDS ORDERED: DILTIAZEM-CD 120 MG CAP ER PO SCH (09:00)
[2016-09-11] MEDS ORDERED: VENLAFAXINE HCL XR 37.5 MG CAP PO SCH (09:00)
[2016-09-11] MEDS: BETHANECHOL CHL 25 MG TAB PO SCH (09:01)
[2016-09-11] MEDS: busPIRone HCL 5 MG TAB PO SCH (09:01)
[2016-09-11] MEDS: SODIUM CHLORIDE 0.9% FLUSH 10 ML FLUSH IV FLUSH SCH (09:02)
--- NOTE | 2016-09-11 09:21 | MB ---
cc: JUSTO GONZALEZ M.D., HANSCY M.D. DATE OF CONSULTATION 09/11/2016 REASON FOR CONSULTATION Tachyarrhythmia. HISTORY OF PRESENT ILLNESS Mr. Torres is an 86-year-old gentleman with atrial fibrillation, previous ablation, was seen in the office with atrial fibrillation. Amiodarone was reinitiated. The patient is on anticoagulation. He was admitted at the ER yesterday due to atrial fibrillation with fast ventricular response, possible left atrial tachycardia. The chart was reviewed. The patient was evaluated. I discussed the case with the ER doctor, Dr. Chauhan. ALLERGIES SULFA. PENICILLIN. DOXYCYCLINE. SOCIAL HISTORY Negative for smoking and drinking. FAMILY HISTORY Noncontributory to his current medical condition. MEDICATIONS 1. He is on potassium. 2. Lasix. 3. Zocor. 4. Xarelto. 5. Terazosin. 6. Sertraline. 7. Amiodarone. 8. Effexor. 9. Omeprazole. 10. Cardizem. REVIEW OF SYSTEMS Currently the patient refers some palpitation but no chest pain or chest discomfort. No fever. PHYSICAL EXAMINATION GENERAL: Alert, fully oriented. VITAL SIGNS: Blood pressure 119/97, pulse around 144, respiratory rate 18. LUNGS: Ventilated. CARDIOVASCULAR: S1, S2. Regular, tachycardia. ABDOMEN: Soft. No mass. EXTREMITIES: No edema. ELECTROCARDIOGRAM Possible left atrial tachycardia. Residual atrial fibrillation. LABORATORY DATA Hemoglobin 13, white blood cell 5.1. Potassium is 4.1, creatinine 1.90. Troponin 0.02. INR 1.3. ASSESSMENT AND RECOMMENDATIONS Mr. Torres has atrial tachycardia, heart rate very difficult to control with medication. He had ablation around 4 months ago. At that point my recommendation is cardioversion and amiodarone. If heart rate cannot be controlled, then ablation will be considered, possible pacing support also. Case discussed with him and his . Cardioversion will be performed today. Ganesh Galindo MD HS/SSB /8:46 AM /9:05 AM
[2016-09-11] MEDS ORDERED: PROPOFOL 200 MG/20 ML AMP IV ONE (09:43)
--- NOTE | 2016-09-11 10:23 | MA ---
cc: DREW BOSWELL M.D. DATE: 09/11/2016 TYPE OF PROCEDURE: Cardioversion. HISTORY: Mr. Metz is an 86-year-old gentleman atrial tachycardia, atrial fibrillation, heart rate unable to control with medication. Patient will undergo cardioversion. The risks, the nature and the benefit of the procedure are clearly stated to him. The risks include cardiac arrest need for the cath intubation, need for pacing support and even . The patient understood and agreed to proceed. PROCEDURE After written informed consent was obtained, the patient was evaluated by anesthesiologist. Anterolateral pads were placed. Subsequently a 200 Sync biphasic joule was delivered, that converted the patient into sinus rhythm. No incident report. The patient tolerated procedure. CONCLUSION Successful cardioversion COMMENT/RECOMMENDATIONS The patient going to be transferred to telemetry unit. Will be observed when stable can be discharged home. MD NERY Carrero/tenisha /8:49 AM /9:22 AM
[2016-09-11 11:12] LABS: MAGNESIUM 2.3 MG/DL (1.5-2.5); POTASSIUM 3.8 MEQ/L (3.5-5.1)
[2016-09-11 11:13] LABS: BICARBONATE 22.7 MEQ/L (21.0-32.0)
--- NOTE | 2016-09-11 12:31 | HHI.DS ---
Discharge Summary Admission Date Sep 10, 2016 at 13:40 Discharge Date: Sep 11, 2016 Admitting Diagnosis Aflutter (1) Atrial fibrillation and flutter ICD Code: I48.91 (2) Atrial fibrillation with RVR ICD Code: I48.91 (3) CKD (chronic kidney disease) stage 3, GFR 30-59 ml/min ICD Code: N18.3 Procedures Cardioversion Brief History - From Admission HPI from the admitting physician: 86-year-old male with a past medical history of A. fib, HTN, DM, BPH, HLD, GERD , depression, COPD who presented with palpitations. The patient states that since Friday he has been having sensation of racing heart rate. He is also having associated shortness of breath, that is worse with exertion. He denies any chest pain or leg swelling. He states that he did forget to take his medications Friday, but otherwise is been compliant. Last he saw his blocker and polisher gold wheel, Dr. Galindo, who adjusted his medications in anticipation of doing cardioversion in 2 weeks. He was previously on metoprolol , which was stopped and he was started on diltiazem and amiodarone. The patient was found to be in atrial flutter with heart rate up to 150 today, patient's blocker and polisher gold wheel was contacted in the ED, reportedly evaluated the patient today. The patient denies any fever, chills, or dysuria. CBC/BMP: 09/11/16 0550 09/11/16 0550 Significant Findings Laboratory Tests Test 09/10/16 09/11/16 11:20 05:50 Red Blood Count 3.88 MIL/MM3 4.04 MIL/MM3 (4.50-5.90) (4.50-5.90) Hematocrit 38.0 % (39.0-51.0) Mean Corpuscular Hemoglobin 34.2 PG (27.0-34.0) Monocytes (%) (Auto) 10.6 % 13.3 % (0.0-8.0) (0.0-8.0) Prothrombin Time 14.7 SEC (9.8-11.6) Activated Partial 35.0 SEC Thromboplast Time (24.3-30.1) Blood Urea Nitrogen 22 MG/DL (7-18) Creatinine 1.90 MG/DL 1.65 MG/DL (0.60-1.30) (0.60-1.30) Estimat Glomerular Filtration 34 ML/MIN (>89) 40 ML/MIN (>89) Rate Alkaline Phosphatase 136 U/L (45-117) Troponin I LESS THAN 0.02 NG/ML (0.02-0.05) Chloride Level 108 MEQ/L (98-107) Imaging Last Impressions Chest X-Ray 09/10/16 1118 Signed Impressions: Service Date/Time: Saturday, September 10, 2016 11:22 - CONCLUSION: The lungs are clear. Ramon Molina MD PE at Discharge GENERAL: This is a well-nourished, well-developed patient, in no apparent distress. CARDIOVASCULAR: Regular rate and rhythm without murmurs, gallops, or rubs. RESPIRATORY: Clear to auscultation. Breath sounds equal bilaterally. No wheezes , rales, or rhonchi. GASTROINTESTINAL: Abdomen soft, non-tender, nondistended. Normal active bowel sounds MUSCULOSKELETAL: Extremities without clubbing, cyanosis, or edema. NEURO: Alert & Oriented x4 to person, place, time, situation. Moves all ext x4 Pt update on day of discharge DW RN. Patient cleared for DC by Cardiology. Patient reports he is feeling well. Wants to go home. No chest pain, shortness of breath or heart palpitations. Hospital Course 86-year-old male with a past medical history of A. fib, HTN, DM, BPH, HLD, GERD , depression, COPD who presented with palpitations. Evaluation and treatment course as followed: Atrial flutter with RVR: EKG personally reviewed with rapid atrial flutter, rate 140s, no definite ST changes. TSH and magnesium within normal limits. Dr. Galindo, EP consulted, patient failed conservative measures. He underwent Cardioversion. He was cleared for discharge to follow up outpatient. Continue oral diltiazem, Xarelto(renally adjusted), amiodarone, potassium. Reported history of borderline DM: Random glucose 91. CKD stage III: Creatinine 1.9, previously 1.86 on 04/09/16. Continue home Lasix. Chronic, stable. Other chronic medical conditions include BPH, depression, HLD, GERD: Stable at this time and will resume home medications on discharge. Pt Condition on Discharge: Good Discharge Disposition: Discharge Home Discharge Time: <= 30 minutes Discharge Instructions DIET: Follow Instructions for: Heart Healthy Diet Activities you can perform: Regular-No Restrictions Follow up Referrals: Cardiology with Ganesh Galindo MD Continued Medications: Amiodarone (Amiodarone) 200 Mg Tab 200 MG PO DAILY Regulate Heart Beat #30 Ref 0 TAB Bethanechol (Bethanechol) 25 Mg Tab 25 MG PO BID Urinary Symptom Managemen Ref 0 TAB Buspirone (Buspirone) 5 Mg Tab 2.5 MG PO BID Anxiety Ref 0 TAB Diltiazem CD 24 HR (Diltiazem CD 24 HR) 240 Mg Caper 120 MG PO DAILY #30 Ref 0 CAP Furosemide (Furosemide) 40 Mg Tab 40 MG PO DAILY #30 Ref 0 TAB Multiple Vitamins W/ Minerals (Ocuvite) 1 Tab 1 TAB PO DAILY Nutritional Supplement Ref 0 TAB Omeprazole (Omeprazole) 20 Mg Tab 20 MG PO DAILY #30 Ref 0 TAB Potassium Chloride ER (Klor-Con 10) 10 Meq Tab 10 MEQ PO DAILY Electrolyte Replacement #30 Ref 0 TAB Rivaroxaban (Xarelto) 15 Mg Tab 15 MG PO HS Blood Clot Prevention Ref 0 TAB Sertraline (Sertraline) 50 Mg Tab 50 MG PO HS #30 Ref 0 TAB Simvastatin (Simvastatin) 10 Mg Tab 10 MG PO HS Cholesterol Management #30 Ref 0 TAB Terazosin (Terazosin) 10 Mg Cap 10 MG PO HS #30 Ref 0 CAP Venlafaxine (Effexor) 75 Mg Tab 37 MG PO DAILY #120 Ref 0 TAB ([Inhilation Powder]) Jo-Ann Maldonado MD Sep 11, 2016 12:31
== END 2016-09-11 12:50 | disposition home or self-care (01) ==
LOC: PHED 10:54 → PHEDA 13:40 → PHICU 15:10 → HCIS 09-11 05:09
PROVIDERS: ADMIT Family Medicine; ATTEND Family Medicine
DX: I48.92 Unspecified atrial flutter (principal); I48.91 Unspecified atrial fibrillation; E11.22 Type 2 diabetes mellitus with diabetic chronic kidney disease; I12.9 Hypertensive chronic kidney disease with stage 1 through stage 4 chronic kidney disease, or unspecified chronic kidney disease; N18.3 Chronic kidney disease, stage 3 (moderate); E78.5 Hyperlipidemia, unspecified; N40.0 Benign prostatic hyperplasia without lower urinary tract symptoms; K21.9 Gastro-esophageal reflux disease without esophagitis; F32.9 Major depressive disorder, single episode, unspecified; J44.9 Chronic obstructive pulmonary disease, unspecified; M19.90 Unspecified osteoarthritis, unspecified site; I25.2 Old myocardial infarction; F41.9 Anxiety disorder, unspecified; Z85.828 Personal history of other malignant neoplasm of skin; Z79.01 Long term (current) use of anticoagulants; Z88.1 Allergy status to other antibiotic agents; Z88.0 Allergy status to penicillin; Z88.2 Allergy status to sulfonamides
CPT/HCPCS: 71010; 80048; 80053; 82550; 83735; 84443; 84484; 85025; 85610; 85730; 92960; 93005; 96361; 96374; 96376; 99285; G0378; J7030; J7040

== ENCOUNTER 2016-09-19 10:56 | Inpatient (IN) | payer MEDICARE ==
[2016-09-19] VITALS (13 sets, daily range): BP systolic 100–147; BP diastolic 55–96; PULSE 90–150; RESP 18–24; TEMP 97.7–98.1; O2SAT 92–98
[~2016-09-19] VITALS: Ht 177.8 cm; Wt 81.6 kg
[~2016-09-19 10:56] MED LIST changes: +AMIO200T PO; +BETH25TA2 PO; -FURO1TAB60 PO; +FURO40TA PO; -METO50TA PO; +OCUVTAB PO; +SERT-132 PO; -UMEC1INH INH; +[UNRECOGNIZED DRUG - REMARK]
--- NOTE | 2016-09-19 11:36 | PD ---
HPI Chief Complaint: Cardiac Complaint Time Seen by Provider: 11:28 Travel History International Travel<30 days: No Contact w/Intl Traveler<30days: No Traveled to known affect area: No History of Present Illness HPI 86 year old male with PMH of COPD, stage III CKD, GERD, BPH, A. fib on Xarelto presents the ED for evaluation of rapid heart rate. Patient underwent cardioversion by Dr. Galindo 09/11/16 and ablation 02/2016. He was seen in Dr. Galindo's office this morning. The nurse practitioner took an EKG and sent him to the emergency room. On presentation the patient endorses weakness and ROWLAND over the last few days. He denies headache, dizziness, vision changes, chest pain, palpitations, cough, abdominal pain, changes in bowel habits, dysuria or swelling of the lower extremities. He endorses compliance with his daily medications. Followed by Dr. Ansari. [facility] Past Medical History Hx Anticoagulant Therapy: Yes Arthritis: Yes Asthma: No Autoimmune Disease: No Anxiety: Yes Depression: Yes Heart Rhythm Problems: Yes (AFIB/flutter) Cancer: Yes (basal cell carcinoma) Cardiovascular Problems: Yes High Cholesterol: Yes Chemotherapy: No Chest Pain: Yes Congestive Heart Failure: No COPD: Yes Diabetes: No Diminished Hearing: Yes (bilat. hearing aides ) Endocrine: No GERD: Yes Genitourinary: Yes (DIFFICULTY EMPTING BLADDER) Hiatal Hernia: No Hypertension: Yes Immune Disorder: No Implanted Vascular Access Dvce: No Kidney Stones: No Musculoskeletal: Yes Neurologic: No Psychiatric: No Reproductive: No Respiratory: Yes (copd, pneumonia) Migraines: No Renal Failure: Yes (chronic kidney failure) Seizures: No Sleep Apnea: No Thyroid Disease: No Ulcer: Yes Past Surgical History Abdominal Surgery: No Cardiac Surgery: Yes (ABLATION X3) Ear Surgery: No Endocrine Surgery: No Eye Surgery: No Insulin Pump: No Joint Replacement: No Pacemaker: No Thoracic Surgery: No Other Surgery: Yes (carotid artery sx ) Social History Alcohol Use: No Tobacco Use: No Substance Use: No Allergies-Medications (Allergen,Severity, Reaction): Coded Allergies: Sulfa (Unverified Allergy, Severe, UNKNOWN, 09/19/16) Penicillin (Verified Allergy, Intermediate, severe diarrhea, 09/19/16) Doxycycline (Verified Allergy, Unknown, 09/19/16) Reported Meds & Prescriptions Reported Meds & Active Scripts Active Reported Ocuvite (Multiple Vitamins W/ Minerals) 1 Tab 1 Tab PO DAILY [Inhilation Powder] Klor-Con 10 (Potassium Chloride) 10 Meq Tab 10 Meq PO DAILY Buspirone (Buspirone HCl) 5 Mg Tab 2.5 Mg PO BID Furosemide 40 Mg Tab 40 Mg PO DAILY Simvastatin 10 Mg Tab 10 Mg PO HS Xarelto (Rivaroxaban) 15 Mg Tab 15 Mg PO HS Terazosin (Terazosin HCl) 10 Mg Cap 10 Mg PO HS Sertraline (Sertraline HCl) 50 Mg Tab 50 Mg PO HS Bethanechol 25 Mg Tab 25 Mg PO BID Amiodarone (Amiodarone HCl) 200 Mg Tab 200 Mg PO DAILY Effexor (Venlafaxine HCl) 75 Mg Tab 37 Mg PO DAILY Omeprazole 20 Mg Tab 20 Mg PO DAILY Diltiazem CD 24 HR 240 Mg Caper 120 Mg PO DAILY Review of Systems Except as stated in HPI: all other systems reviewed are Neg Physical Exam Narrative GENERAL: Well-nourished, well-developed pleasant white male in no acute distress. SKIN: Focused skin assessment warm/dry. HEAD: Normocephalic. EYES: No scleral icterus. No injection or drainage. NECK: Supple, trachea midline. No JVD or lymphadenopathy. CARDIOVASCULAR: Irregular rate and rhythm without additional murmurs, gallops, or rubs. RESPIRATORY: Breath sounds clear and equal bilaterally. No accessory muscle use. GASTROINTESTINAL: Abdomen soft, non-tender, nondistended. Active bowel sounds. MUSCULOSKELETAL: No cyanosis, or edema. Patient is ambulatory with a cane. Homans sign negative bilaterally. BACK: Nontender without obvious deformity. No CVA tenderness. Data Data Last Documented VS Vital Signs Date Time Temp Pulse Resp B/P Pulse Ox O2 Delivery O2 Flow Rate FiO2 09/19/16 12:42 141 18 125/94 97 Room Air 09/19/16 11:00 97.7 Orders Electrocardiogram (09/19/16 ) Ckmb (Isoenzyme) Profile (09/19/16 11:36) Complete Blood Count With Diff (09/19/16 11:36) Comprehensive Metabolic Panel (09/19/16 11:36) Magnesium (Mg) (09/19/16 11:36) Prothrombin Time / Inr (Pt) (09/19/16 11:36) Act Partial Throm Time (Ptt) (09/19/16 11:36) Troponin I (09/19/16 11:36) Chest, Single Ap (09/19/16 11:36) Ecg Monitoring (09/19/16 11:36) Bilateral Bp Monitoring (09/19/16 11:36) Iv Access Insert/Monitor (09/19/16 11:36) Oximetry (09/19/16 11:36) Sodium Chloride 0.9% Flush (Ns Flush) (09/19/16 11:45) Vascular Access Team Consult/P PRN (09/19/16 12:19) Vascular Poc Ultrasound (09/19/16 ) Admit Order (Ed Use Only) (09/19/16 13:01) Labs Laboratory Tests Test 09/19/16 11:44 White Blood Count 5.8 TH/MM3 Red Blood Count 4.01 MIL/MM3 Hemoglobin 13.0 GM/DL Hematocrit 38.4 % Mean Corpuscular Volume 95.8 FL Mean Corpuscular Hemoglobin 32.5 PG Mean Corpuscular Hemoglobin 34.0 % Concent Red Cell Distribution Width 15.2 % Platelet Count 206 TH/MM3 Mean Platelet Volume 9.8 FL Neutrophils (%) (Auto) 64.7 % Lymphocytes (%) (Auto) 21.4 % Monocytes (%) (Auto) 11.0 % Eosinophils (%) (Auto) 1.6 % Basophils (%) (Auto) 1.3 % Neutrophils # (Auto) 3.7 TH/MM3 Lymphocytes # (Auto) 1.2 TH/MM3 Monocytes # (Auto) 0.6 TH/MM3 Eosinophils # (Auto) 0.1 TH/MM3 Basophils # (Auto) 0.1 TH/MM3 CBC Comment DIFF FINAL Differential Comment Prothrombin Time 14.7 SEC Prothromb Time International 1.3 RATIO Ratio Activated Partial 33.3 SEC Thromboplast Time Sodium Level 142 MEQ/L Potassium Level 4.0 MEQ/L Chloride Level 107 MEQ/L Carbon Dioxide Level 25.0 MEQ/L Anion Gap 10 MEQ/L Blood Urea Nitrogen 23 MG/DL Creatinine 1.79 MG/DL Estimat Glomerular Filtration 36 ML/MIN Rate Random Glucose 84 MG/DL Calcium Level 9.2 MG/DL Magnesium Level 2.5 MG/DL Total Bilirubin 0.4 MG/DL Aspartate Amino Transf 25 U/L (AST/SGOT) Alanine Aminotransferase 21 U/L (ALT/SGPT) Alkaline Phosphatase 122 U/L Total Creatine Kinase 60 U/L Troponin I LESS THAN 0.02 NG/ML Total Protein 7.2 GM/DL Albumin 3.8 GM/DL MDM Medical Decision Making Medical Screen Exam Complete: Yes Emergency Medical Condition: Yes Differential Diagnosis dysrhythmia versus ACS versus PNA versus other Narrative Course 86 year old male with PMH of COPD, stage III CKD, GERD, BPH, A. fib on Xarelto presents the ED for evaluation of rapid heart rate. Patient underwent cardioversion by Dr. Galindo 09/11/16 and ablation 02/2016. He was seen in Dr. Galindo's office this morning. The nurse practitioner took an EKG and sent him to the emergency room. On presentation the patient endorses weakness and ROWLAND over the last few days. He denies headache, dizziness, vision changes, chest pain, palpitations, cough, abdominal pain, changes in bowel habits, dysuria or swelling of the lower extremities. He endorses compliance with his daily medications. Vitals reviewed. Pulse 150 in triage. Physical exam reveals a pleasant white male in no acute distress. Heart rate irregularly irregular. Equal pulses in the bilateral extremities. Chest clear to auscultation bilaterally. Abdomen soft, nontender. No swelling of the lower extremities. IV was established. Patient was placed on continuous monitoring. Call placed to Dr. Galindo. EKG: Rate 126, A. fib with RVR. Reviewed by Dr. Gurrola. CBC: WBC 5.8, hemoglobin 13. CMP: BUN 23, creatinine 1.79 Magnesium: 2.5 Cardiac Enzymes: Negative 1 CXR: No cardiopulmonary disease. Stable scarring in the left lung base per radiology read. Spoke with Dr. Galindo who would like the patient admitted to the CICU. He plans AV david ablation. Call placed to [facility]. I spoke with Dr. Alberto who agrees to accept the patient to the medicine service. Please see medicine and cardiology notes for disposition. Lizet Dumont Sep 19, 2016 11:36
[2016-09-19] MEDS ORDERED: SODIUM CHLORIDE 0.9% FLUSH 10 ML FLUSH IVF PRN (11:45)
[2016-09-19 12:09] LABS: AUTOMATED NEUTROPHIL # 3.7 TH/MM3 (1.8-7.7); BASOPHIL # 0.1 TH/MM3 (0-0.2); BASOPHIL % 1.3 % (0.0-2.0); EOSINOPHIL # 0.1 TH/MM3 (0-0.4); EOSINOPHIL % 1.6 % (0.0-4.0); HEMATOCRIT 38.4 % (39.0-51.0); HEMO FLAGS DIFF FINAL; LYMPH % 21.4 % (9.0-44.0); LYMPHOCYTE # 1.2 TH/MM3 (1.0-4.8); MEAN CELL VOLUME 95.8 FL (80.0-100.0); MEAN CORPUSCULAR HEMOGLOBIN 32.5 PG (27.0-34.0); NEUT % 64.7 % (16.0-70.0); PLATELET COUNT 206 TH/MM3 (150-450); RED BLOOD COUNT 4.01 MIL/MM3 (4.50-5.90); RED CELL DISTRIBUTION WIDTH 15.2 % (11.6-17.2); WHITE BLOOD COUNT 5.8 TH/MM3 (4.0-11.0)
--- NOTE | 2016-09-19 13:17 | RADRPT ---
EXAM DATE/TIME: 09/19/2016 12:06 [facility] COMPARISON: CHEST SINGLE AP, June 13, 2015, 13:47. CHEST SINGLE AP, June 16, 2015, 4:19. CHEST SINGLE AP, September 10, 2016, 11:22. INDICATIONS : Shortness of breath. MEDICAL HISTORY : Hypertension. Chronic obstructive pulmonary disease. Osteoarthritis. SURGICAL HISTORY : Cardiac ablation. Carotid artery surgery. ENCOUNTER: Initial ACUITY: 2 days PAIN SCORE: 0/10 LOCATION: Bilateral chest FINDINGS: A single AP erect portable view of the chest was obtained and demonstrates stable scarring at the lef t lung base. There are no new confluent infiltrates or effusions. The heart size remains within flo l limits. Atherosclerotic calcifications are present in the aorta. CONCLUSION: 1. No acute cardiopulmonary disease. 2. Stable scarring in the left lung base. Casimiro Woodward MD on September 19, 2016 at 13:14 Board Certified Radiologist. This report was verified electronically.
[2016-09-19 13:27] LABS: APTT (PATIENT) 33.3 SEC (24.3-30.1); INTERNATIONAL NORMALIZED RATIO 1.3 RATIO; PROTHROMBIN TIME - PATIENT 14.7 SEC (9.8-11.6)
[2016-09-19 13:33] LABS: ANION GAP 10 MEQ/L (5-15); BLOOD UREA NITROGEN 23 MG/DL (7-18); CHLORIDE 107 MEQ/L (98-107); MAGNESIUM 2.5 MG/DL (1.5-2.5); SODIUM (NA) 142 MEQ/L (136-145)
[2016-09-19 13:39] LABS: ALKALINE PHOSPHATASE 122 U/L (45-117); ALT (GPT) 21 U/L (12-78); AST (GOT) 25 U/L (15-37); GLOMERULAR FILTRATION RATE 36 ML/MIN (>89); TOTAL BILIRUBIN ADULT 0.4 MG/DL (0.2-1.0)
[2016-09-19 13:49] LABS: CREATINE KINASE 60 U/L (39-308)
--- NOTE | 2016-09-19 17:42 | HHI.HP ---
[facility] Service [facility] Primary Care Physician Carloz Hall M.D. Admission Diagnosis a fib with RVR Diagnoses: Chief Complaint: Palpitations Travel History International Travel<30 Days: No Contact w/Intl Traveler <30 Da: No Traveled to Known Affected Are: No History of Present Illness Patient is a very pleasant 86-year-old male with history of atrial fibrillations status post ablation 4 months ago and recently on last September 11 underwent cardioversion. Patient states that the next day after the procedure he went home still has occasional elevated heart rate. Patient states that he checks his blood pressures on a regular basis and every time he does his heart rate were elevated. 3 days ago on his regular follow-up with his PCP was noted to be in atrial fibrillation again. He was set up to follow up with Dr. Jackson today and on evaluation was noted to be in rapid rhythm and was sent here for further evaluation and management. In the past patient had high heart ablation done in 1997, January 2016, February 2016. No history of coronary artery disease or cerebrovascular accidents. And as stated latest one was in 09/11/16. His Cardizem was decreased 220 mg daily. At one point in the past he was on Lopressor but this was discontinued when he was placed on calcium channel carmen and amiodarone. Patient states that he gets short of breath with mild exertion. makes sure that patient is compliant with medications. Review of Systems Constitutional: DENIES: Diaphoretic episodes, Fatigue, Fever, Weight gain, Weight loss, Chills, Dizziness, Change in appetite, Night Sweats Endocrine: DENIES: Heat/cold intolerance, Polydipsia, Polyuria, Polyphagia Eyes: DENIES: Blurred vision, Diplopia, Eye inflammation, Eye pain, Vision loss , Photosensitivity, Double Vision Ears, nose, mouth, throat: DENIES: Tinnitus, Hearing loss, Vertigo, Nasal discharge, Oral lesions, Throat pain, Hoarseness, Ear Pain, Running Nose, Epistaxis, Sinus Pain, Toothache, Odynophagia Respiratory: DENIES: Apneas, Cough, Snoring, Wheezing, Hemoptysis, Sputum production, Shortness of breath Cardiovascular: COMPLAINS OF: Dyspnea on Exertion Genitourinary: COMPLAINS OF: Urgency, DENIES: Sexual dysfunction, Urinary frequency, Urinary incontinence, Hematuria, Dysuria, Nocturia, Penile Discharge , Testicular Pain, Testicular Swelling Musculoskeletal: DENIES: Joint pain, Muscle aches, Stiffness, Joint Swelling, Back pain, Neck pain Integumentary: DENIES: Abnormal pigmentation, Nail changes, Pruritus, Rash Hematologic/lymphatic: DENIES: Bruising, Lymphadenopathy Immunologic/allergic: DENIES: Eczema, Urticaria Neurologic: DENIES: Abnormal gait, Headache, Localized weakness, Paresthesias, Seizures, Speech Problems, Tremor, Poor Balance Psychiatric: COMPLAINS OF: Anxiety (positive history), Depression Past Family Social History Past Medical History Bladder dysfunction Benign prostatic hypertrophy Atrial fibrillation chronic Depression Anxiety disorder Bladder dysfunction GERD Chronic kidney insufficiency Past Surgical History Left carotid endarterectomy in 2011 Reported Medications Prazosin 10 mg at bedtime Amiodarone 200 mg daily Xarelto 50 mg at bedtime Sertraline 50 mg at bedtime Effexor 37.5 mg daily Buspirone 2.5 mg twice a Cardizem CD 120 mg daily Simvastatin 10 mg at bedtime Furosemide 40 mg daily Multivitamins by mouth daily Propranolol 25 mg twice a day Omeprazole 20 mg daily Klor-Con 10 milliequivalents daily Allergies: Coded Allergies: Sulfa (Unverified Allergy, Severe, UNKNOWN, 09/19/16) Penicillin (Verified Allergy, Intermediate, severe diarrhea, 09/19/16) Doxycycline (Verified Allergy, Unknown, 09/19/16) Family History Noncontributory Social History History of smoking quit 10 years ago alcohol use for the past 10 years Physical Exam Vital Signs Vital Signs Date Time Temp Pulse Resp B/P Pulse Ox O2 Delivery O2 Flow Rate FiO2 09/19/16 16:00 120 09/19/16 15:26 135 18 147/81 96 Room Air 09/19/16 15:00 112 09/19/16 15:00 97.8 112 18 147/96 98 09/19/16 12:42 141 18 125/94 97 Room Air 09/19/16 12:42 95 Room Air 09/19/16 11:27 146 18 98 Room Air 09/19/16 11:00 97.7 150 24 118/80 98 Physical Exam GENERAL: This is a well-nourished, well-developed patient, in no apparent distress. Appears comfortable heart rate 120 SKIN: No rashes, ecchymoses or lesions. Cool and dry. HEAD: Atraumatic. Normocephalic. No temporal or scalp tenderness. EYES: Pupils equal round and reactive. Extraocular motions intact. No scleral icterus. No injection or drainage. ENT: Nose without bleeding, purulent drainage or septal hematoma. Throat without erythema, tonsillar hypertrophy or exudate. Uvula midline. Airway patent. NECK: Trachea midline. No JVD or lymphadenopathy. Supple, nontender, no meningeal signs. CARDIOVASCULAR: Regular rhythm without murmurs, gallops, or rubs. Tachycardic RESPIRATORY: Clear to auscultation. Breath sounds equal bilaterally. No wheezes , rales, or rhonchi. GASTROINTESTINAL: Abdomen soft, non-tender, nondistended. No hepato-splenomegaly , or palpable masses. No guarding. MUSCULOSKELETAL: Extremities without clubbing, cyanosis, or edema. No joint tenderness, effusion, or edema noted. No calf tenderness. Negative Homans sign bilaterally. NEUROLOGICAL: Awake and alert. Cranial nerves II through XII intact. Motor and sensory grossly within normal limits. Five out of 5 muscle strength in all muscle groups. Normal speech. Laboratory Laboratory Tests Test 09/19/16 11:44 White Blood Count 5.8 Red Blood Count 4.01 Hemoglobin 13.0 Hematocrit 38.4 Mean Corpuscular Volume 95.8 Mean Corpuscular Hemoglobin 32.5 Mean Corpuscular Hemoglobin 34.0 Concent Red Cell Distribution Width 15.2 Platelet Count 206 Mean Platelet Volume 9.8 Neutrophils (%) (Auto) 64.7 Lymphocytes (%) (Auto) 21.4 Monocytes (%) (Auto) 11.0 Eosinophils (%) (Auto) 1.6 Basophils (%) (Auto) 1.3 Neutrophils # (Auto) 3.7 Lymphocytes # (Auto) 1.2 Monocytes # (Auto) 0.6 Eosinophils # (Auto) 0.1 Basophils # (Auto) 0.1 CBC Comment DIFF FINAL Differential Comment Prothrombin Time 14.7 Prothromb Time International 1.3 Ratio Activated Partial 33.3 Thromboplast Time Sodium Level 142 Potassium Level 4.0 Chloride Level 107 Carbon Dioxide Level 25.0 Anion Gap 10 Blood Urea Nitrogen 23 Creatinine 1.79 Estimat Glomerular Filtration 36 Rate Random Glucose 84 Calcium Level 9.2 Magnesium Level 2.5 Total Bilirubin 0.4 Aspartate Amino Transf 25 (AST/SGOT) Alanine Aminotransferase 21 (ALT/SGPT) Alkaline Phosphatase 122 Total Creatine Kinase 60 Troponin I LESS THAN 0.02 Total Protein 7.2 Albumin 3.8 Result Diagram: 09/19/16 1144 09/19/16 1144 Imaging Last Impressions Chest X-Ray 09/19/16 1136 Signed Impressions: Service Date/Time: August 12:06 - CONCLUSION: 1. No acute cardiopulmonary disease. 2. Stable scarring in the left lung base. Casimiro Woodward MD Assessment and Plan Assessment and Plan 86-year-old male presenting with depressed palpitations or dyspnea on exertion chronic Recurrent Atrial flutter/chronic A. fib invariable rate despite multiple AV david ablations in the past. Patient hemodynamically stable . Dr. Galindo was informed about this and plan is to keep patient overnight and possibly do a repeat AV david ablation in am Will continue on patient's medications are amiodarone 200 mg daily Cardizem CD 120 mg daily. Xarelto 15 mg at bedtime Chronic kidney insufficiency stage III. Renal functions are near baseline. History of hypertension. Continue on above meds. Continue on furosemide 40 mg daily. Klor-Con 10 milliequivalent daily History of hyperlipidemia continue on simvastatin 10 mg at bedtime History of depression/anxiety disorder. Continue on sertraline 50 mg at bedtime Effexor 37.5 mg daily, buspirone 2.5 mg twice a day History of BPH/bladder dysfunction. Continue finasteride 40 mg daily, bethanechol 25 mg twice a, terazosin 10 mg at bedtime History of GERD continue on omeprazole 20 mg daily Discussed with patient and at bedside Discussed Condition With Patient and Physician Certification 2 Midnight Certification Type: Admission for Inpatient Services Order for Inpatient Services The services are ordered in accordance with Medicare regulations or non- Medicare payer requirements, as applicable. In the case of services not specified as inpatient-only, they are appropriately provided as inpatient services in accordance with the 2-midnight benchmark. Estimated LOS (days): 3 days is the estimated time the patient will need to remain in the hospital, assuming treatment plan goals are met and no additional complications. Post-Hospital Plan: Not yet determined Yasmin Alberto MD Sep 19, 2016 17:42
--- NOTE | 2016-09-19 18:36 | EKG ---
Date Performed: 09/19/2016 Time Performed: 11:13:03 PTAGE: 86 years EKG: ATRIAL FIBRILLATION WITH RAPID VENTRICULAR RESPONSE SEPTAL MYOCARDIAL INFARCTION ABNORMAL E CG COMPARED TO PRIOR ELECTROCARDIOGRAM, Atrial for relation seems to have replaced atrial flutter. PREVIOUS TRACING : 09/10/2016 12.14 DOCTOR: Rayshawn Merchant Interpretating Date/Time 09/19/2016 18:34:24
[2016-09-19] MEDS ORDERED: DILTIAZEM HCL 25 MG/5 ML VIAL IV PUSH ONE (20:15)
[2016-09-19] MEDS ORDERED: DILTIAZEM 125 MG/NS 100 ML IV SCH ×2 (20:15)
[2016-09-19] MEDS: TERAZOSIN HCL 5 MG CAP PO SCH (20:39)
[2016-09-19] MEDS: busPIRone HCL 5 MG TAB PO SCH (20:40)
[2016-09-19] MEDS: PRAVASTATIN SOD 20 MG TAB PO SCH (20:40)
[2016-09-19] MEDS: SERTRALINE HCL 50 MG TAB PO SCH (20:40)
[2016-09-19] MEDS ORDERED: RIVAROXABAN 15 MG TAB PO SCH (21:00)
[2016-09-19] MEDS: BETHANECHOL CHL 25 MG TAB PO SCH (21:33)
[2016-09-20] VITALS (23 sets, daily range): BP systolic 111–130; BP diastolic 56–77; PULSE 70–128; RESP 16–20; TEMP 97.4–98.2; O2SAT 92–97
--- NOTE | 2016-09-20 08:07 | HHI.PR ---
Subjective Remarks no chest pains or shortness of breath overnight- telemetry- fib/flutter rhythm variable rate Objective Vitals Vital Signs Date Time Temp Pulse Resp B/P Pulse Ox O2 Delivery O2 Flow Rate FiO2 09/20/16 06:00 126 09/20/16 05:00 124 09/20/16 04:23 98.2 124 130/76 94 09/20/16 04:00 124 09/20/16 03:00 123 09/20/16 02:00 84 09/20/16 01:00 98 09/20/16 00:00 80 09/19/16 23:00 98.1 97 103/60 92 09/19/16 23:00 97 09/19/16 22:00 110 09/19/16 21:03 98 09/19/16 21:00 90 09/19/16 20:00 122 09/19/16 19:00 97.7 123 100/55 97 09/19/16 19:00 123 09/19/16 18:00 120 09/19/16 17:00 120 09/19/16 16:00 120 09/19/16 15:26 135 18 147/81 96 Room Air 09/19/16 15:00 112 09/19/16 15:00 97.8 112 18 147/96 98 09/19/16 12:42 141 18 125/94 97 Room Air 09/19/16 12:42 95 Room Air 09/19/16 11:27 146 18 98 Room Air 09/19/16 11:00 97.7 150 24 118/80 98 I/O 09/19/16 09/19/16 09/19/16 09/20/16 09/20/16 09/20/16 07:00 15:00 23:00 07:00 15:00 23:00 Intake Total 480 ml 240 ml Output Total 200 ml 300 ml Balance 280 ml -60 ml Intake Oral 480 ml 240 ml Output Urine Total 200 ml 300 ml Result Diagram: 09/19/16 1144 09/19/16 1144 Imaging Last Impressions Chest X-Ray 09/19/16 1136 Signed Impressions: Service Date/Time: August 12:06 - CONCLUSION: 1. No acute cardiopulmonary disease. 2. Stable scarring in the left lung base. Casimiro Woodward MD Objective Remarks GENERAL: awake and alert, NAD, oriented x 3 SKIN: Warm and dry. HEAD: Normocephalic. EYES: No scleral icterus. No injection or drainage. NECK: Supple, trachea midline. No JVD or lymphadenopathy. CARDIOVASCULAR: irregular rhythm, no murmurs RESPIRATORY: Breath sounds equal bilaterally. No accessory muscle use. GASTROINTESTINAL: Abdomen soft, non-tender, nondistended. MUSCULOSKELETAL: No cyanosis, or edema. neuro exam- unremarkable A/P Assessment and Plan 86-year-old male presenting with palpitations, dyspnea on exertion chronic Recurrent atrial fibrillation/flutter in variable rate. despite multiple AV david ablations done in the past. Patient hemodynamically stable . Comfortable Dr. Galindo was informed about this and plan is to keep patient overnight and possibly do a repeat AV david ablation. PM Will continue on patient's medications are amiodarone 200 mg daily Cardizem CD 120 mg daily. Xarelto 15 mg at bedtime Chronic kidney insufficiency stage III. Renal functions are near baseline. History of hypertension. Continue on above meds. Continue on furosemide 40 mg daily. Klor-Con 10 milliequivalent daily History of hyperlipidemia continue on simvastatin 10 mg at bedtime History of depression/anxiety disorder. Continue on sertraline 50 mg at bedtime Effexor 37.5 mg daily, buspirone 2.5 mg twice a day History of BPH/bladder dysfunction. Continue finasteride 40 mg daily, bethanechol 25 mg twice a, terazosin 10 mg at bedtime History of GERD continue on omeprazole 20 mg daily Discussed with patient and at bedside Discussed Condition With Yasmin Alberto MD Sep 20, 2016 08:07 Yasmin Alberto MD Sep 20, 2016 08:07
[2016-09-20] MEDS ORDERED: AMIODARONE 200 MG TAB PO SCH (09:00)
[2016-09-20] MEDS: PANTOPRAZOLE SOD 20 MG DELAYED RELEASE TAB PO SCH (10:26)
[2016-09-20] MEDS: busPIRone HCL 5 MG TAB PO SCH ×2 (10:26→21:02)
[2016-09-20] MEDS: POTASSIUM CHLORIDE 10 MEQ CONTROLLED RELEASE TAB PO SCH (10:26)
[2016-09-20] MEDS: VENLAFAXINE HCL XR 37.5 MG CAP PO SCH (10:26)
[2016-09-20] MEDS: FUROSEMIDE 40 MG TAB PO SCH (10:26)
[2016-09-20] MEDS: MULTIVITAMIN-OPHTHALMIC 1 TAB PO SCH (10:26)
[2016-09-20] MEDS: BETHANECHOL CHL 25 MG TAB PO SCH ×2 (10:29→21:03)
[2016-09-20] MEDS ORDERED: HEPARIN-NS/PF INJ 500 ML ONE (15:45)
[2016-09-20] MEDS ORDERED: VANCOMYCIN 500 MG VIAL ONE (15:45)
[2016-09-20] MEDS ORDERED: LIDOCAINE HCL 2% 50 ML VIAL ONE (15:46)
[2016-09-20] MEDS ORDERED: VANCOMYCIN HCL 1000 MG VIAL ONE (15:46)
[2016-09-20] MEDS ORDERED: PROPOFOL 200 MG/20 ML AMP OTHER ONE (16:30)
[2016-09-20] MEDS ORDERED: traMADol HCL 50 MG TAB PO PRN (19:00)
[2016-09-20] MEDS ORDERED: TEMAZEPAM 15 MG CAP PO PRN (19:00)
[2016-09-20] MEDS ORDERED: ATROPINE SULFATE 1 MG/ML VIAL IV PRN (19:00)
[2016-09-20] MEDS ORDERED: METOCLOPRAMIDE HCL 10 MG/2 ML VIAL IV PRN (19:00)
[2016-09-20] MEDS ORDERED: BACITRACIN OINT 0.9 GM PKT TOP ONE (19:00)
[2016-09-20] MEDS ORDERED: LORazepam 2 MG/ML VIAL IV PRN (19:00)
[2016-09-20] MEDS ORDERED: ONDANSETRON HCL 4 MG/2 ML VIAL IV PRN ×2 (19:00)
[2016-09-20] MEDS ORDERED: LIDOCAINE HCL 1% 50 ML VIAL INFIL PRN (19:00)
[2016-09-20] MEDS ORDERED: SODIUM CHLOR 0.9% 250 ML INJ 250 ML IV PRN (19:00)
[2016-09-20] MEDS ORDERED: PILL SPLITTER OTHER PRN (19:15)
[2016-09-20] MEDS ORDERED: DO NOT ADM ANY ANTICOAGULANT DRUGS PRN (20:15)
[2016-09-20] MEDS: TERAZOSIN HCL 5 MG CAP PO SCH (20:58)
[2016-09-20] MEDS ORDERED: RIVAROXABAN 15 MG TAB PO SCH (21:00)
[2016-09-20] MEDS: PRAVASTATIN SOD 20 MG TAB PO SCH (21:02)
[2016-09-20] MEDS: SERTRALINE HCL 50 MG TAB PO SCH (21:02)
[2016-09-20] MEDS: traMADol HCL 50 MG TAB PO PRN (21:07)
--- NOTE | 2016-09-20 21:21 | RADRPT ---
EXAM DATE/TIME: 09/20/2016 20:15 [facility] COMPARISON: CHEST SINGLE AP, September 19, 2016, 12:06. INDICATIONS : Rule out pneumonia. MEDICAL HISTORY : Hypertension. Chronic obstructive pulmonary disease. Osteoarthritis. SURGICAL HISTORY : Cardiac ablation. Carotid artery surgery. ENCOUNTER: Initial ACUITY: 1 day PAIN SCORE: 0/10 LOCATION: Bilateral chest FINDINGS: The heart size is enlarged. There is a multilead pacemaker in place from the left subclavian approac h. The lungs demonstrate mild prominence of the interstitial markings. A focal consolidation is not seen. No effusion is seen. CONCLUSION: 1. Cardiomegaly with diffuse increased interstitial markings likely representing mild CHF. 2. Multilead biventricular pacemaker in place without evidence of a pneumothorax. Osvaldo Duncan MD on September 20, 2016 at 21:09 Board Certified Radiologist. This report was verified electronically.
[2016-09-21] VITALS (15 sets, daily range): BP systolic 107–136; BP diastolic 58–66; PULSE 77–86; RESP 16–18; TEMP 97.6–98.3; O2SAT 92–96
--- NOTE | 2016-09-21 07:38 | PD.CARD.PN ---
Subjective Subjective Remarks no overnight events left shoulder pain Objective Medications Current Medications Medications (Trade) Dose Ordered Sig/Margaret Route Start Time Stop Time Status Last Admin (NS Flush) 2 ml UNSCH PRN IVF 09/19/16 11:45 (Urecholine) 25 mg BID PO 09/19/16 21:00 09/20/16 21:03 (Buspar) 2.5 mg BID PO 09/19/16 21:00 09/20/16 21:02 (Lasix) 40 mg DAILY PO 09/20/16 09:00 09/20/16 10:26 (Ocuvite) 1 tab DAILY PO 09/20/16 09:00 09/20/16 10:26 (KCl) 10 meq DAILY PO 09/20/16 09:00 09/20/16 10:26 (Zoloft) 50 mg HS PO 09/19/16 21:00 09/20/16 21:02 (Hytrin) 10 mg HS PO 09/19/16 21:00 09/20/16 20:58 (Protonix) 20 mg DAILY PO 09/20/16 09:00 09/20/16 10:26 (Pravachol) 20 mg HS PO 09/19/16 21:00 09/20/16 21:02 (Effexor Xr) 37.5 mg DAILY PO 09/20/16 09:00 09/20/16 10:26 (Restoril) 15 mg HS PRN PO 09/20/16 19:00 09/20/16 21:20 (Ultram) 25 mg Q4H PRN PO 09/20/16 19:00 (Ultram) 50 mg Q4H PRN PO 09/20/16 19:00 09/20/16 21:07 (Ativan Inj) 0.5 mg UNSCH PRN IV 09/20/16 19:00 09/21/16 18:59 Atropine Sulfate 0.5 mg 0.5 mg UNSCH PRN IV 09/20/16 19:00 (NS 250 ml Inj) 250 ml @ 500 mls/hr ONCE PRN IV 09/20/16 19:00 09/21/16 18:59 (Reglan Inj) 5 mg Q4H PRN IV 09/20/16 19:00 (Zofran Inj) 4 mg Q4H PRN IV 09/20/16 19:00 09/20/16 21:07 (Xylocaine 1% Inj (50 ml)) 10 ml UNSCH PRN INFIL 09/20/16 19:00 09/21/16 18:59 (Xarelto) 15 mg HS PO 09/20/16 21:00 09/20/16 21:02 (Pill Splitter) 1 ea UNSCH PRN OTHER 09/20/16 19:15 Miscellaneous Information ALL NURSING DEPARTME... UNSCH PRN .XX 09/20/16 20:15 09/21/16 20:14 Vital Signs / I&O Vital Signs Date Time Temp Pulse Resp B/P Pulse Ox O2 Delivery O2 Flow Rate FiO2 09/21/16 07:00 79 09/21/16 06:00 79 09/21/16 05:00 80 09/21/16 04:00 Nasal Cannula 3.00 09/21/16 04:00 98.3 79 18 136/66 95 09/21/16 04:00 79 09/21/16 03:00 80 09/21/16 02:00 78 09/21/16 01:00 77 09/21/16 00:00 79 09/21/16 00:00 98.2 79 18 111/60 96 09/21/16 00:00 Nasal Cannula 3.00 09/20/16 23:00 78 09/20/16 22:00 78 09/20/16 21:00 98.0 80 20 112/57 92 09/20/16 21:00 80 09/20/16 20:30 80 19 115/57 96 Nasal Cannula 3 09/20/16 20:15 96.9 80 22 118/63 95 Nasal Cannula 3 09/20/16 20:00 79 18 104/59 93 Nasal Cannula 3 09/20/16 19:45 80 19 113/61 94 Nasal Cannula 4 09/20/16 19:34 96.6 80 20 110/60 95 Nasal Cannula 4 09/20/16 16:00 09/20/16 15:00 90 09/20/16 15:00 97.4 83 16 122/77 97 09/20/16 14:21 90 09/20/16 13:05 97 09/20/16 12:09 98.2 86 16 120/56 97 09/20/16 12:08 71 09/20/16 11:00 72 09/20/16 10:00 70 09/20/16 09:30 98.0 76 16 111/73 97 09/20/16 09:00 128 09/20/16 08:00 100 I/O 09/20/16 09/20/16 09/20/16 09/21/16 09/21/16 09/21/16 07:00 15:00 23:00 07:00 15:00 23:00 Intake Total 240 ml 1545 ml 250 ml Output Total 300 ml 1350 ml 600 ml Balance -60 ml 195 ml -350 ml Intake Oral 240 ml 195 ml 240 ml IV Total 10 ml Other 1350 ml Output Urine Total 300 ml 1350 ml 600 ml Estimated Blood Loss 0 ml # Bowel Movements 1 0 Physical Exam GENERAL: Well-nourished, well-developed patient. SKIN: Warm and dry. HEAD: Normocephalic. EYES: No scleral icterus. No injection or drainage. NECK: Supple, trachea midline. No JVD or lymphadenopathy. CARDIOVASCULAR: Regular rate and rhythm without murmurs, gallops, or rubs. RESPIRATORY: Breath sounds equal bilaterally. No accessory muscle use. GASTROINTESTINAL: Abdomen soft, non-tender, nondistended. EXTREMITIES: No cyanosis, or edema. NEUROLOGICAL: Awake, alert, and oriented x 3. Non-focal. Imaging Last Impressions Chest X-Ray 09/20/16 0000 Signed Impressions: Service Date/Time: Tuesday, September 20, 2016 20:15 - CONCLUSION: 1. Cardiomegaly with diffuse increased interstitial markings likely representing mild CHF. 2. Multilead biventricular pacemaker in place without evidence of a pneumothorax. Osvaldo Duncan MD Assessment and Plan Problem List: (1) AF (atrial fibrillation) Assessment and Plan: s/p AV node ablation and BIV pacemaker yesterday No overnight events No CV complaints Device interrogation this AM within normal limits Continue medical therapy Stable from CV to be d/c home today (2) Atrial fibrillation and flutter (3) CKD (chronic kidney disease) stage 3, GFR 30-59 ml/min Josué Kenney MD Sep 21, 2016 07:38
--- NOTE | 2016-09-21 08:18 | HHI.FPPN ---
Subjective Remarks No acute events overnight. He is now POD #2 from ablation and BIV pacemaker placement. He states he has been cleared for discharge from a CV surgery standpoint. Denies fevers, chills, chest pain, shortness of breath, or heart palpitations. Currently tolerating diet. Objective Vitals Vital Signs Date Time Temp Pulse Resp B/P Pulse Ox O2 Delivery O2 Flow Rate FiO2 09/21/16 07:00 79 09/21/16 06:00 79 09/21/16 05:00 80 09/21/16 04:00 Nasal Cannula 3.00 09/21/16 04:00 98.3 79 18 136/66 95 09/21/16 04:00 79 09/21/16 03:00 80 09/21/16 02:00 78 09/21/16 01:00 77 09/21/16 00:00 79 09/21/16 00:00 98.2 79 18 111/60 96 09/21/16 00:00 Nasal Cannula 3.00 09/20/16 23:00 78 09/20/16 22:00 78 09/20/16 21:00 98.0 80 20 112/57 92 09/20/16 21:00 80 09/20/16 20:30 80 19 115/57 96 Nasal Cannula 3 09/20/16 20:15 96.9 80 22 118/63 95 Nasal Cannula 3 09/20/16 20:00 79 18 104/59 93 Nasal Cannula 3 09/20/16 19:45 80 19 113/61 94 Nasal Cannula 4 09/20/16 19:34 96.6 80 20 110/60 95 Nasal Cannula 4 09/20/16 16:00 09/20/16 15:00 90 09/20/16 15:00 97.4 83 16 122/77 97 09/20/16 14:21 90 09/20/16 13:05 97 09/20/16 12:09 98.2 86 16 120/56 97 09/20/16 12:08 71 09/20/16 11:00 72 09/20/16 10:00 70 09/20/16 09:30 98.0 76 16 111/73 97 09/20/16 09:00 128 I/O 09/20/16 09/20/16 09/20/16 09/21/16 09/21/16 09/21/16 07:00 15:00 23:00 07:00 15:00 23:00 Intake Total 240 ml 1545 ml 250 ml Output Total 300 ml 1350 ml 600 ml Balance -60 ml 195 ml -350 ml Intake Oral 240 ml 195 ml 240 ml IV Total 10 ml Other 1350 ml Output Urine Total 300 ml 1350 ml 600 ml Estimated Blood Loss 0 ml # Bowel Movements 1 0 Result Diagram: 09/19/16 1144 09/19/16 1144 Objective Remarks GEN: Well-developed, well-nourished elderly patient. No acute distress. SKIN: Warm, dry, area of recent pacemaker placement CDI CV: Regular rate and rhythm without obvious murmurs LUNGS: Clear to auscultation bilaterally. Normal respiratory effort. No wheezes , rales, rhonchi. GI: Soft, nontender, nondistended. No palpable masses. Bowel sounds WNL. EXT: No edema. NEURO/PSYCH: Afocal. Awake, alert, and oriented x3. Appropriate insight and judgment. A/P Assessment and Plan 86-year-old male with a past medical history significant for recurrent atrial fibrillation with RVR status post prior ablation in 1997 and again in January and February 2016 presents with persistent A. fib with RVR despite Cardizem #) A. fib with RVR: * Status post ablation and placement of BIV 09/20 * Rate controlled. Cardiology has discontinued cardizem * Continue Xarelto 15 mg at bedtime * Continue amlodipine 200 mg daily * Cleared by cardiology for discharge #) CKD III: At baseline * Continue to monitor renal function #) Hypertension: * Continue CREDIT CARD ASSOCIATE antihypertensives #) Hyperlipidemia: * Continue simvastatin 10 mg at bedtime #) Depression and anxiety: * Continue on sertraline 50 mg at bedtime Effexor 37.5 mg daily, buspirone 2.5 mg twice a day #) BPH: * Continue finasteride 40 mg daily, bethanechol 25 mg twice a, terazosin 10 mg at bedtime Discharge Planning Anticipate discharge to home today pending clearance by cardiology Problem List: (1) Atrial fibrillation with RVR Status: Acute (2) CKD (chronic kidney disease) stage 3, GFR 30-59 ml/min Status: Acute (3) COPD with exacerbation Status: Acute (4) Hyperlipemia Status: Acute (5) Hypertension Status: Acute Problem Qualifiers (1) Hyperlipemia: Qualified Code: E78.5 - Hyperlipidemia, unspecified hyperlipidemia type (2) Hypertension: Qualified Code: I15.9 - Secondary hypertension Yonathan Johns MD R3 Sep 21, 2016 08:18
--- NOTE | 2016-09-21 08:24 | HHI.DCPOC ---
Discharge Care Plan Diagnosis: (1) Atrial fibrillation with RVR Goals to Promote Your Health * To prevent worsening of your condition and complications * To maintain your health at the optimal level Directions to Meet Your Goals Take your medications as prescribed Follow your dietary instruction Follow activity as directed Keep your appointments as scheduled Take your immunizations and boosters as scheduled If your symptoms worsen call your PCP, if no PCP go to Urgent Care Center or Emergency Room Smoking is Dangerous to Your Health. Avoid second hand smoke Call the 24-hour hour crisis hotline for domestic abuse at Yonathan Johns MD R3 Sep 21, 2016 08:24
[2016-09-21] MEDS: PANTOPRAZOLE SOD 20 MG DELAYED RELEASE TAB PO SCH (09:07)
[2016-09-21] MEDS: MULTIVITAMIN-OPHTHALMIC 1 TAB PO SCH (09:07)
[2016-09-21] MEDS: FUROSEMIDE 40 MG TAB PO SCH (09:08)
[2016-09-21] MEDS: busPIRone HCL 5 MG TAB PO SCH (09:08)
[2016-09-21] MEDS: BETHANECHOL CHL 25 MG TAB PO SCH (09:08)
[2016-09-21] MEDS: VENLAFAXINE HCL XR 37.5 MG CAP PO SCH (09:08)
[2016-09-21] MEDS: POTASSIUM CHLORIDE 10 MEQ CONTROLLED RELEASE TAB PO SCH (09:08)
--- NOTE | 2016-09-21 10:03 | MA ---
cc: DREW BOSWELL M.D. DATE: 09/21/2016. PROCEDURE PERFORMED: Electrophysiology study and CS cannulation. INDICATIONS FOR THE PROCEDURE: Mr. Torres is an 86-year-old gentleman with atrial fibrillation, heart rate unable to be controlled with medication, very symptomatic previous hospitalization who will undergo AV node ablation. The risks, the nature and the benefits of the procedure were clearly stated to him and his family. The risks include pneumothorax, cardiac perforation, stroke and even . The patient understood and agreed to proceed. DESCRIPTION OF THE PROCEDURE IN DETAIL: After written informed consent was obtained, the patient was brought to the EP lab where he was prepped and draped in the usual sterile fashion. Conscious sedation was initiated and maintained throughout the procedure by the anesthesiologist. Once sedation was verified, the right inguinal area was anesthetized with 2% Xylocaine. Using modified Seldinger technique, the right femoral vein was cannulated on four occasions and four guidewires were advanced. Over the wires, a two 5 and 6-Turkish Hemaquets were advanced. Then under fluoroscopic guidance through the 5- and 6-Turkish Hemaquet, three 5-Turkish Enrique curved quadripolar electrophysiology catheter was advanced and placed along the his, the upper right atrium, the coronary sinus and right ventricular apex. Basic interval was measured. The patient was in atrial fibrillation. Ventricular pacing protocol was performed. There was good capture. No tachyarrhythmia was induced. Then over the 8-Turkish Hemaquet, a Cordis Murguia F curved 18 mm mapping and radiofrequency ablation catheter was advanced. Using the [employer] Endocardial Solution Mapping System a two-dimensional configuration of the right atrium was obtained. Points were taken at the His, SVC, IVC, ___ and CS. Then the catheter was placed at the tricuspid valve annulus. When the his was mapped radiofrequency energy was delivered. The patient was in junctional rhythm and then flat lined. Ventricular pacing was performed. Further burn was delivered in the area. Then Isuprel infusion was initiated. There was junctional rhythm. I did ablate further in the area. Post Isuprel, there was no conduction. At that point, the procedure was complete. All catheters except the RV catheter was removed. The patient is going to be kept on the table and a pacer will be implanted. No incident report. The patient tolerated procedure. The blood loss was minimal. I. ELECTROCARDIOGRAM: At baseline, the patient was in atrial fibrillation. Post the procedure, the patient was in V-pacing. II. BASIC INTERVALS: Base cycle length was around 420 milliseconds. III. TACHYARRHYTHMIA: The AV node was mapped and ablated. The ablation was successful. CONCLUSIONS: Successful electrophysiology study, mapping and AV node ablation. COMMENTS AND RECOMMENDATIONS: The patient is going to be transferred to the telemetry unit. He will be observed and when stable, can be discharged home. MD NERY Carrero/THERON /7:04 PM /9:57 AM
[2016-09-21] MEDS: traMADol HCL 50 MG TAB PO PRN (12:13)
[2016-09-21] MEDS ORDERED: HYDR-3533 PO (12:33)
[2016-09-21 14:58] LABS: AUTOMATED NEUTROPHIL # 6.4 TH/MM3 (1.8-7.7); BASOPHIL % 0.5 % (0.0-2.0); EOSINOPHIL # 0.1 TH/MM3 (0-0.4); EOSINOPHIL % 0.9 % (0.0-4.0); HEMATOCRIT 39.1 % (39.0-51.0); HEMO FLAGS DIFF FINAL; LYMPH % 13.3 % (9.0-44.0); LYMPHOCYTE # 1.2 TH/MM3 (1.0-4.8); MEAN CELL VOLUME 98.8 FL (80.0-100.0); MEAN CORPUSCULAR HEMOGLOBIN 33.2 PG (27.0-34.0); MEAN CORPUSCULAR HGB CONC 33.6 % (32.0-36.0); MONO % 12.7 % (0.0-8.0); NEUT % 72.6 % (16.0-70.0); PLATELET COUNT 162 TH/MM3 (150-450); RED BLOOD COUNT 3.96 MIL/MM3 (4.50-5.90); RED CELL DISTRIBUTION WIDTH 15.4 % (11.6-17.2); WHITE BLOOD COUNT 8.8 TH/MM3 (4.0-11.0)
[2016-09-21 15:21] LABS: BICARBONATE 24.4 MEQ/L (21.0-32.0)
--- NOTE | 2016-09-21 19:03 | EKG ---
Date Performed: 09/21/2016 Time Performed: 06:27:54 PTAGE: 86 years EKG: Ventricular pacing Pacemaker rhythm - no further analysis Abnormal ECG PREVIOUS TRACING : 09/20/2016 20.16 Compared to prior tracing no significant change DOCTOR: Lawrence Elizabeth Interpretating Date/Time 09/21/2016 19:02:17
--- NOTE | 2016-09-21 19:15 | EKG ---
Date Performed: 09/20/2016 Time Performed: 20:16:27 PTAGE: 86 years EKG: ELECTRONIC VENTRICULAR PACEMAKER ABNORMAL RHYTHM ECG PREVIOUS TRACING : 09/19/2016 11.13 Compared to the previous tracing AF w RVR no longer present DOCTOR: Lawrence Elizabeth Interpretating Date/Time 09/21/2016 19:15:07
--- NOTE | 2016-09-23 07:50 | MP ---
cc: MARCUS FINNEY MD, HANSCY M.D. EISENHUT, JOSHUA R. M.D. DATE OF SURGERY: 09/20/2016 PROCEDURE Biventricular pacer insertion. INDICATION Mr. Torres is an 86-year-old gentleman with atrial fibrillation unable to control with medication and previous ablation to undergo AV node ablation and biventricular pacer insertion. The risks, the nature and the benefit of the procedure were clearly stated to him. The risks include pneumothorax, cardiac perforation, stroke, need for open heart surgery and even . The patient understood and agreed to proceed. DETAILS OF PROCEDURE As written informed consent was obtained prior to electrophysiology study, the patient was kept on the table where he was prepped and draped in the usual sterile fashion. Conscious sedation was initiated and maintained throughout the procedure by the anesthesiologist. Once sedation was verified, the left infraclavicular area was anesthetized with 2% Xylocaine. Using modified Seldinger technique, the left subclavian vein was cannulated on two occasions and two guidewires were advanced. Then using a #11 scalpel, a 2 cm incision was made two fingerbreadths below the left clavicle. This incision was then taken down to the fascial layer using Bovie cautery and blunt dissection. Into the inferomedial direction, a device pocket was dissected. Then the wire was dissected into the pocket. A 2-0 Vicryl suture was placed around the wire to prevent back bleeding. At this point over the lateral wire, a 7-Ethiopian dilator and introducer were advanced. As the dilator and wire were removed, an active fixation right ventricular pacing and sensing lead was advanced. After an adequate pacing and sensing threshold was obtained, the lead was secured in the pocket using 2-0 Ethibond suture. Then over the remaining wire, a 9-Ethiopian dilator and introducer was advanced. As the dilator and wire were removed, a CS cannulation sheath was advanced. Through the sheath a quadripolar steerable catheter was advanced. After multiple attempts the coronary sinus was cannulated. CS venography showed a posterolateral branch. Using a Prowater wire the posterolateral branch was cannulated and the lead was advanced over the wire. There was diaphragmatic stimulation. After multiple attempts I did position the lead in the anterolateral branch. After adequate pacing and sensing thresholds were obtained, the peel-away introducer was removed, the cutter introducer was removed and the lead was secured in the pocket using 2-0 Ethibond suture. This was basically the only available branch. At that point the pocket was copiously irrigated using antibiotic solution. The leads were connected to the generator and placed into the pocket. The RA port was blocked. There was no atrial lead. I did proceed with wound closure. The deep fascial layer was approximated using 2-0 Vicryl suture in a continuous fashion. The subcutaneous layer was approximated using 2-0 Vicryl suture in a continuous fashion. The subcuticular layer was re-approximated using 2-0 Vicryl suture in a continuous fashion. Dermabond adhesive was applied to the wound followed by a sterile pressure dressing. There was no complication. The patient tolerated the procedure. Blood loss minimal. IMPLANTED HARDWARE The implanted biventricular pacer is a Medtronic, model C4TR01, serial number [id number]. The right ventricular pacing and sensing lead is a Medtronic, model 4076-58, serial number [id number]. The left ventricular pacing and sensing lead is a Medtronic, model 4396-88, serial number [id number]. THRESHOLDS The right ventricular pacing threshold in a bipolar mode was 1.4 volts at 0.5 milliseconds. Lead impedance 1169 ohms. Sensing of pacing R wave is 16.1 millivolts. The left ventricular pacing threshold in the bipolar mode was 2 volts at 0.5 milliseconds. Lead impedance 1240 milliseconds. SETTINGS The device is set in a VVIR 80, upper limit 110 beats per minute, LV first by 40 milliseconds. In a month the rate is going to be decreased to VVIR 70. CONCLUSION Successful biventricular pacer insertion. COMMENT/RECOMMENDATION The patient is going to be transferred to the telemetry unit. He will be observed and when stable will be discharged home. Ganesh Galindo MD HS/BT /6:57 PM /7:24 AM
== END 2016-09-21 14:53 | disposition home or self-care (01) | DRG 244 ==
LOC: NEPE 10:56 → NEDA 13:02 → HCIS 15:40
PROVIDERS: ADMIT Family Medicine Sports Medicine; ATTEND Family Medicine Sports Medicine
PROC: 02HL3JZ Insertion of Pacemaker Lead into Left Ventricle, Percutaneous Approach (ICD-10-PCS; 2016-09-20)
PROC: 02583ZZ Destruction of Conduction Mechanism, Percutaneous Approach (ICD-10-PCS; 2016-09-20)
PROC: 4A0234Z Measurement of Cardiac Electrical Activity, Percutaneous Approach (ICD-10-PCS; 2016-09-20)
PROC: 02HK3JZ Insertion of Pacemaker Lead into Right Ventricle, Percutaneous Approach (ICD-10-PCS; 2016-09-20)
PROC: 0JH606Z Insertion of Pacemaker, Dual Chamber into Chest Subcutaneous Tissue and Fascia, Open Approach (ICD-10-PCS; principal; 2016-09-20 17:00)
PROC: 4B02XSZ Measurement of Cardiac Pacemaker, External Approach (ICD-10-PCS; 2016-09-21)
DX: I48.1 Persistent atrial fibrillation (principal); I48.92 Unspecified atrial flutter; J44.9 Chronic obstructive pulmonary disease, unspecified; I15.9 Secondary hypertension, unspecified; J98.4 Other disorders of lung; N18.3 Chronic kidney disease, stage 3 (moderate); N40.0 Benign prostatic hyperplasia without lower urinary tract symptoms; K21.9 Gastro-esophageal reflux disease without esophagitis; F32.9 Major depressive disorder, single episode, unspecified; F41.9 Anxiety disorder, unspecified; H91.93 Unspecified hearing loss, bilateral; E78.5 Hyperlipidemia, unspecified; N31.9 Neuromuscular dysfunction of bladder, unspecified; E78.00 Pure hypercholesterolemia, unspecified; Z88.1 Allergy status to other antibiotic agents; Z88.0 Allergy status to penicillin; Z79.899 Other long term (current) drug therapy; Z85.828 Personal history of other malignant neoplasm of skin; Z87.891 Personal history of nicotine dependence; Z79.02 Long term (current) use of antithrombotics/antiplatelets
CPT/HCPCS: 33208; 33225; 71010; 76937; 80048; 80053; 82550; 83735; 84484; 85025; 85610; 85730; 93005; 93613; 93620; 93623; 93650; C1730; C1732; C1769; C1898; C2621; C2630; J1644; J1956; J2405; J3370; J7050

== ENCOUNTER 2017-02-04 19:46 | Emergency (ER) | payer MEDICARE ==
[~2017-02-04] VITALS: Ht 182.9 cm; Wt 80.5 kg
[2017-02-04 19:55] VITALS: BP 140/56; PULSE 85; RESP 16; TEMP 99.6; O2SAT 97
[2017-02-04] MEDS ORDERED: SODIUM CHLORID 0.9% 500 ML INJ 500 ML IV ONE (20:00)
[2017-02-04] MEDS ORDERED: SODIUM CHLORIDE 0.9% FLUSH 10 ML FLUSH IVF PRN (20:00)
[2017-02-04 20:33] LABS: AUTOMATED NEUTROPHIL # 5.9 TH/MM3 (1.8-7.7); BASOPHIL # 0.1 TH/MM3 (0-0.2); BASOPHIL % 0.7 % (0.0-2.0); EOSINOPHIL % 0.1 % (0.0-4.0); HEMATOCRIT 33.3 % (39.0-51.0); LYMPH % 9.3 % (9.0-44.0); LYMPHOCYTE # 0.7 TH/MM3 (1.0-4.8); MEAN CELL VOLUME 90.3 FL (80.0-100.0); MEAN CORPUSCULAR HEMOGLOBIN 30.4 PG (27.0-34.0); MEAN CORPUSCULAR HGB CONC 33.6 % (32.0-36.0); MONO % 13.4 % (0.0-8.0); NEUT % 76.5 % (16.0-70.0); PLATELET COUNT 126 TH/MM3 (150-450); RED BLOOD COUNT 3.69 MIL/MM3 (4.50-5.90); RED CELL DISTRIBUTION WIDTH 16.1 % (11.6-17.2); WHITE BLOOD COUNT 7.7 TH/MM3 (4.0-11.0)
[2017-02-04 20:34] LABS: HEMO FLAGS DIFF FINAL
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
[2017-02-04 20:45] LABS: CHLORIDE 103 MEQ/L (98-107); POTASSIUM 4.3 MEQ/L (3.5-5.1); SODIUM (NA) 136 MEQ/L (136-145)
[2017-02-04 20:49] LABS: ANION GAP 10 MEQ/L (5-15); BICARBONATE 22.6 MEQ/L (21.0-32.0); BLOOD UREA NITROGEN 33 MG/DL (7-18); MAGNESIUM 2.2 MG/DL (1.5-2.5)
[2017-02-04 20:51] LABS: APTT (PATIENT) 43.1 SEC (24.3-30.1); INTERNATIONAL NORMALIZED RATIO 1.5 RATIO; PROTHROMBIN TIME - PATIENT 17.3 SEC (9.8-11.6)
[2017-02-04 20:52] LABS: ALT (GPT) 15 U/L (12-78); AST (GOT) 20 U/L (15-37); GLOMERULAR FILTRATION RATE 27 ML/MIN (>89)
[2017-02-04 20:53] LABS: TOTAL BILIRUBIN ADULT 0.7 MG/DL (0.2-1.0)
[2017-02-04 20:55] LABS: ALKALINE PHOSPHATASE 120 U/L (45-117)
[2017-02-04 21:03] LABS: CREATINE KINASE 86 U/L (39-308)
[2017-02-04 21:21] VITALS: BP 136/47; PULSE 70; RESP 16; O2SAT 99
--- NOTE | 2017-02-04 21:27 | RADRPT ---
EXAM DATE/TIME: 02/04/2017 21:01 [facility] COMPARISON: CHEST SINGLE AP, September 20, 2016, 20:15. INDICATIONS : Chest pain and weakness for a day. MEDICAL HISTORY : Hypertension. Chronic obstructive pulmonary disease. Osteoarthritis. GERD. PR. A-fib. SURGICAL HISTORY : CABG. Cardiac ablation. Carotid artery surgery. ENCOUNTER: Initial ACUITY: 2 days PAIN SCORE: 4/10 LOCATION: Bilateral chest FINDINGS: Very mild atelectasis seen of both lung bases. Approximate 4 cm area of slightly more confluent conso lidation seen laterally at the right base. No pneumothorax. Heart size stable, upper limits of normal. Cardiac pacer again noted. CONCLUSION: Trace bibasilar atelectasis. Suspected early or mild pneumonia of the right base in the proper clinic al setting. Followup 2 view chest x-ray recommended in approximately 3 weeks to confirm resolution. Osvaldo Kaplan MD on February 04, 2017 at 21:24 Board Certified Radiologist. This report was verified electronically.
[2017-02-04] MEDS ORDERED: LEVA500T20 PO (21:36)
[2017-02-04] MEDS ORDERED: CEPH-460 PO (21:36)
[2017-02-04] MEDS ORDERED: LEVOFLOXACIN 500 MG TAB PO ONE (21:45)
[2017-02-04] MEDS ORDERED: cefTRIAXone INJ 1,000 MG in SODIUM CHLORIDE 0.9% INJ 100 ML IV ONE (21:45)
[2017-02-04 22:50] VITALS: BP 122/56
--- NOTE | 2017-02-05 21:34 | EKG ---
Date Performed: 02/04/2017 Time Performed: 20:14:09 PTAGE: 86 years EKG: ELECTRONIC VENTRICULAR PACEMAKER ABNORMAL RHYTHM ECG PREVIOUS TRACING : 09/21/2016 06.27 Compared to prior tracing no significant change DOCTOR: Lawrence Elizabeth Interpretating Date/Time 02/05/2017 21:31:50
== END 2017-02-04 22:53 | disposition home or self-care (01) ==
LOC: PHED 19:46
DX: J44.0 Chronic obstructive pulmonary disease with (acute) lower respiratory infection (principal); J18.9 Pneumonia, unspecified organism; E86.0 Dehydration; I12.9 Hypertensive chronic kidney disease with stage 1 through stage 4 chronic kidney disease, or unspecified chronic kidney disease; Z95.1 Presence of aortocoronary bypass graft; Z88.0 Allergy status to penicillin; Z85.828 Personal history of other malignant neoplasm of skin; N18.9 Chronic kidney disease, unspecified; I48.91 Unspecified atrial fibrillation
CPT/HCPCS: 71010; 80053; 82550; 83735; 83880; 84484; 85025; 85610; 85730; 93005; 96361; 96365; 99285; J0696; J7040; 81001